=== PATIENT | female | born 1965 | race Caucasian/White ===

== ENCOUNTER 2018-02-19 11:00 | Inpatient (IN) | payer BC ==
[2018-02-19] MEDS ORDERED: HYDROmorphone INJ1* 1 MG/ML SYRINGE IV SLOW PU PRN (15:48)
[2018-02-19] MEDS ORDERED: Dextrose 50% Syringe 50 ML* 25 GM/50 ML SYRINGE IV PUSH PRN (16:18)
[2018-02-19] MEDS: Insulin LISPRO* 1 UNITS UNIT SUBCUT SCH (16:33)
[2018-02-19] MEDS: Ciprofloxacin 400MG IVPREMIX(* 400 MG/200 ML BAG IVPB SCH (20:23)
[2018-02-19] MEDS: NS 0.9% 1000 ML* 1,000 ML IV SCH (20:23)
[2018-02-19] MEDS: Morphine TAB Extended Release (*) 30 MG TAB.ER PO SCH (20:23)
--- NOTE | 2018-02-19 22:17 | CONS ---
GASTROENTEROLOGY CONSULT: DATE: 02/19/18 CONSULTING PHYSICIAN: Kaylie Rodriguez REASON FOR CONSULTATION: 5 days of abdominal pain with bloody diarrhea on day [address] scan showing thickening of the sigmoid colon. HISTORY: This 52-year-old morbidly obese woman diabetic for 10 years, on insulin for 6, status post cholecystectomy in 1999, chronic pain, on narcotics with constipation and with a history of ischemic colitis in June 2015, developed abdominal pain about 5 days ago. She states that [facility], and she suddenly developed nausea, vomiting, and diarrhea that was clearish she states. She took a couple of orally dissolving anti-nauseants (presumably Zofran) and went home. The next day, she just felt weak and ate lightly and had more fairly loose passages. She did not see any blood then. On 02/16/18, she was at a [employer] [place] and had more urgency and passed blood and this occurred a few times. She took no action other than to tell her . She vomited once that day. There was no fever. On 02/17/18, she spoke with Dr. Rodriguez about her blood sugar control. She reported passing mucus and she was having abdominal pain with walking and when her dog jumped on her lap. She took 3 Imodium yesterday and has not had a stool in 24 hours Today, she was seen at her primary office and was tender and had a CT scan showing thickening of the bowel with some questionable stranding in the ascending colon and in the rectosigmoid area. Two and half years ago, she had similar pain and was seen by Dr Browning and sigmoidoscopy showed ischemic colitis and a biopsy was also consistent with it. Dr. Browning saw normal mucosa above the sigmoid. No recent antibiotics from her primary She has never had a colonoscopy for any other reason. Her usual bowel pattern is constipated where she may skip 2 to 5d or even more than a week, which she attributes to pain medicines. Five or six times a year, she will have an episode where she becomes very flushed with chills, has cramps and then a precipitous voluminous stool. She cannot figure any particular pattern to this except that it is fairly infrequent, the last one was about a month ago. Some workup reportedly was done a few years ago. PAST MEDICAL HISTORY: 1. Morbid obesity. 2. Chronic pain - followed in pain clinic. 3. Status post cholecystectomy in 1999. 4. Diabetes - oral agents about 10 years ago and insulin 6 years ago. She is now prone to low blood sugar attacks. 5. Hypothyroidism. 6. Fatty liver. 7. Ischemic colitis episode in June 2015 with negative thrombophilic workup after that. 8. Four C-sections. 9. Hysterectomy. 10. Lysis of adhesions intraoperatively by Dr. Srinivasan doing an intraoperative consult. 11. Thrombocytopenia - a slow diminution in platelets over the last several years with the last clearly normal platelet count 215 on 04/15/11 and then gradually evolving lower into the 60 to 90 range. MEDICATIONS: As an outpatient: 1. Metformin. 2. Sitagliptin. 3. Insulin. 4. Ferrous sulfate. 5. Atorvastatin. 6. Levothyroxine. 7. Lyrica. 8. Hydrocodone. 9. Senna. SOCIAL HISTORY: She is and does arts and crafts, which she presents at [employer]. She has 4 children, the youngest being 27[address] Rodriguez has been her doctor for 30 years. REVIEW OF SYSTEMS: No history of seizures, TIA, CVA, syncope, palpitations, [place] , heart failure, hepatitis, jaundice, hematuria, or renal stones. She did have an episode of vaginitis treated with an unknown med. PHYSICAL EXAMINATION: She is morbidly obese woman in bed, appearing generally comfortable. She has a quizzical smile and asking if she can go home. She is afebrile. HEENT exam shows no icterus. She has no adenopathy with marked obesity limiting the exam. Lungs are clear and heart sounds are regular. The abdomen is obese with minimal lap eze scars. Bowel sounds are diminished. She is tender mostly in the midline infraumbilical area and left lower quadrant. Perianal inspection is normal. Rectal reveals some yellowish brown fecal mucous. Extremities show no edema and pulses are intact. DIAGNOSTIC STUDIES/LAB DATA: CBC shows white count 7.3, hemoglobin 14.4, MCV 88 , platelets 94, CRP 46.37, bilirubin 0.6, ALT 54, albumin 3.9. Most recent iron panel was iron 55, PRBC 46, saturation 14%, ferritin 15.3, 06/23/16. Followup ferritin 33.9 one year later, 07/04/17. Radiology review - CT scan shows good IV contrast flow through the SMA on sagittal image 48/95 and the HEYDI and celiac access image 49 to 95. IMPRESSION: This 52-year-old woman with many vascular risk factors has had a 5- day illness with some diarrhea and additional features of vomiting at the onset , some bloody passage on the 3rd day and yet no or white count elevation. She does not look systemically ill at this time. Since she has had an episode of documented ischemic colitis, possibly this represents a somewhat atypical presentation; it is probably high on the list of candidates. Other causes of diarrhea are possible as the bleeding description is not classic for ischemia. An unprepped sigmoidoscopy is probably indicated with collection of stool for culture. Today she has not produced a specimen. A full course of antibiotics may not be indicated given her afebrile status and normal white count. Her morbid obesity, might warrant an aggressive independent approach. [id number]/[facility]PS #: [id number] MTDD
[2018-02-19] MEDS ORDERED: Al Hydrox/Mg Hydrox/Simet LIQ* 30 ML UDC PO PRN (23:44)
[2018-02-19] MEDS: metroNIDAZOLE IV 500 MG/100ML* 500 MG/100 ML BAG IVPB SCH (23:57)
--- NOTE | 2018-02-20 02:46 | HP ---
HISTORY AND PHYSICAL: DATE OF ADMISSION: 02/19/18 HISTORY OF PRESENT ILLNESS: Cristy Hong is a 52-year-old woman admitted with probable ischemic colitis. The patient has not felt well over the last several days. She presented to our office today with a 5-day history of clear mucosy stool at first. This persisted for 2 to 3 days and then she began to have bloody streaks in the mucous. She then developed pain in the left lower side of her abdomen accompanied by loss of appetite, nausea, vomiting. She has had no fever. She has had 3 to 4 loose bowel movements daily since her symptoms began. She took two Imodium tabs yesterday and has not had a bowel movement today. The patient had ischemic colitis in 2016. Because of these symptoms, she was sent for labs and a CT scan, which did show colitis and she is being admitted at this time. PAST MEDICAL HISTORY: Significant for the following medical problems. 1. Type 2 diabetes mellitus, recently not well controlled because the patient admitted to not be taking her insulin regularly. 2. History of thrombocytopenia. 3. Hypothyroidism. 4. Chronic low back pain. 5. Hyperlipidemia. 6. Morbid obesity, the patient being evaluated for bariatric surgery. 7. History of fatty liver. 8. Hypothyroidism. 9. Social phobia. 10. Depression. 11. Sleep apnea. PAST SURGICAL HISTORY: Includes lumbar laminectomy, hysterectomy, bilateral oophorectomy, cholecystectomy, bilateral reduction mammoplasties. MEDICATIONS: Current medications are: 1. Levothyroxine 112 mcg daily. 2. Sertraline 50 mg daily. 3. Clobetasol 0.05% as needed. 4. Januvia 100 mg daily. 5. Atorvastatin 10 mg daily. 6. Metformin 1000 mg twice daily. 7. Ferrous sulfate 325 mg every other day. 8. Ondansetron 4 mg 1 every 8 hours p.r.n. nausea. 9. Senna plus 8.6 mg/50 twice a day as needed for constipation. 10. Imodium as needed for diarrhea. 11. Humalog 15 units a.c. 12. Lantus SoloSTAR 75 units daily. 13. Embeda 60 mg/2.4 mg daily. 14. Daly seltzer p.r.n. 15. Aspirin 81 mg daily. 16. Hydrocodone 10/325 one half tablet twice a day as needed. 17. Lyrica 100 mg 3 times a day. ALLERGIES: She is allergic to SULFA, TYLENOL, TYLENOL with CODEINE, SIMVASTATIN , DEMEROL, EFFEXOR, GLIPIZIDE. FAMILY HISTORY: Positive for heart disease, diabetes mellitus, obesity. SOCIAL AND PERSONAL HISTORY: The patient is . She is not employed. She does do crafts, participates in craft shows. She has 4 adult children. Her son has been recently undergoing treatment for Hodgkin's lymphoma. She lives in a rented home. REVIEW OF SYSTEMS: Otherwise unremarkable. PHYSICAL EXAMINATION GENERAL: She is a well-developed, obese, white female, in no acute distress. VITAL SIGNS: Blood pressure 110/72, pulse 76, respirations 20, temperature 98. Weight is down 3 pounds in the past week. HEENT: Atraumatic, normocephalic. Full EOMs. Mouth: Pharynx benign. NECK: Supple. CHEST: Clear. HEART: Normal S1, S2 without murmurs, gallops, or rubs. ABDOMEN: Soft with marked bilateral lower quadrant tenderness, left worse than right. No rebound or guarding. Normal bowel sounds. EXTREMITIES: Without edema. NEUROLOGIC: Without gross focal or lateralizing signs. SKIN: Warm and dry. LABORATORY DATA: CBC: WBC 7.3, H and H 14.4/43, MCV 88, PLT 94,000. Chemistries: Sodium 137, potassium 4.1, chloride 101, CO2 28, BUN and creatinine 10/0.77, glucose 173. Alk phos 205, ALT 54, CRP 46.37. Chem profile otherwise within normal limits. CT scan of the abdomen shows colitis. IMPRESSION: The patient with probable ischemic colitis. The plan is to admit her and place her on IV antibiotics. GI consultation has been requested. I have spoken to Dr. Elena. She will be receiving IV fluids. Her diet is clear liquids. DVT prophylaxis with SCDs will be ordered. I will not be giving her heparin because of GI bleeding. She is a full code. [id number]/CPS #: [id number] MTDD
[2018-02-20] MEDS: Ondansetron INJ* 2 MG/ML VIAL IV PRN ×2 (03:27→10:32)
[2018-02-20] MEDS: Levothyroxine TAB* 112 MCG TAB PO SCH (05:24)
[2018-02-20] MEDS: metroNIDAZOLE IV 500 MG/100ML* 500 MG/100 ML BAG IVPB SCH ×3 (05:24→20:47)
[2018-02-20] MEDS: Insulin LISPRO* 1 UNITS UNIT SUBCUT SCH ×3 (07:43→19:09)
[2018-02-20 08:18] LABS: Hematocrit 40 % (35-47); Hemoglobin 13.6 g/dl (12.0-16.0); Mean Corpuscular HGB Conc 34 g/dl (31-36); Mean Corpuscular Hemoglobin 29 pg (27-31); Mean Corpuscular Volume 87 fL (80-97); Red Blood Count 4.67 10^6/ul (4.00-5.40); Red Cell Distribution Width 15 % (10.5-15); White Blood Count 6.8 10^3/ul (3.5-10.8)
[2018-02-20 08:41] LABS: EGFR Non-African American 88.6 (>60)
[2018-02-20] MEDS: Morphine TAB Extended Release (*) 30 MG TAB.ER PO SCH ×2 (08:55→22:04)
[2018-02-20] MEDS: Insulin GLARGINE(*) 1 UNITS UNIT SUBCUT SCH (08:55)
[2018-02-20] MEDS: Ciprofloxacin 400MG IVPREMIX(* 400 MG/200 ML BAG IVPB SCH ×2 (08:55→19:19)
[2018-02-20 09:08] LABS: ABS Basophils 0 10^3/ul (0-0.2); ABS Eosinophils 0.2 10^3/ul (0-0.6); ABS Lymphocytes 1.5 10^3/ul (1.0-4.8); ABS Monocytes 0.4 10^3/ul (0-0.8); ABS Neutrophils 4.7 10^3/ul (1.5-7.7); ABS Nucleated RBC 0 10^3/ul; Eosinophil % 2.3 % (0-6); Lymphocyte % 21.9 % (25-47); Mean Platelet Volume 11.3 fL (7.4-10.4); Nucleated Red Blood Cells % 0.1; Platelet Count 96 10^3/ul (150-450)
[2018-02-20] MEDS: NS 0.9% 1000 ML* 1,000 ML IV SCH (10:34)
[2018-02-20] MEDS ORDERED: fentaNYL* 50 MCG/ML 2 ML VIAL (100 MCG VIAL) ONE (15:41)
[2018-02-20] MEDS ORDERED: Midazolam* 1 MG/ML 10 ML VIAL (10 MG) ONE (15:41)
[2018-02-20] MEDS ORDERED: Ondansetron INJ* 2 MG/ML VIAL ONE (17:14)
--- NOTE | 2018-02-20 19:26 | PRO ---
AMENDED REPORT NOW INCLUDES DATE OF PROCEDURE - ESIGNED BEFORE ADJUSTMENT * CC: Kaylie Rodriguez MD * PROCEDURE REPORT: DATE OF PROCEDURE: 02/20/18 - ROOM #403 ATTENDING PHYSICIAN: Kaylie Rodriguez MD PROCEDURE: Flex sig with biopsy. INDICATION: History of ischemic colitis in the sigmoid on colonoscopy and confirmed on biopsy in 2016, now with recurrent nausea, vomiting, diarrhea with some rectal bleeding. Colon thickening in the ascending colon and the rectosigmoid. Concern for recurrent ischemic colitis. MEDICATIONS GIVEN: 1. Midazolam 2 mg. 2. Fentanyl 25 mg. 3. Zofran 4 mg IV. PROCEDURE IN DETAIL: Full disclosure of risks were reviewed with the patient as detailed on the consent form. The patient was placed in the left lateral decubitus position and monitored with continuous pulse oximetry, capnography, interval blood pressure monitoring, and direct observation. After anorectal exam was performed, the pediatric colonoscope was inserted into the rectum and advanced 15 cm. The patient tolerated the procedure well and was recovered in the GI recovery area. FINDINGS: Anorectal exam was unremarkable. Scope was inserted into the rectum. Immediately upon entering into the rectum, there was quite abnormal mucosa noted. Mucosa was diffusely friable and erythematous. There was what appeared to be exudate scattered across the mucosa. The exudate did not wash off with water flush, although I was able to move or scrape off some of this exudate with biopsy forceps to reveal friable mucosa underneath. Biopsies obtained. I did not advance the colonoscope past down to 15 cm as the inflammation was quite significant. Scope was withdrawn from the patient. A trap was used to collect some of the fluid suctioned from the rectum. There was not a large amount of liquid stool in the rectum, so this fluid sample may be dilute with liquid used to wash the mucosa during the case. Fluid to be sent for C. Diff and stool culture. IMPRESSION: Colitis involving entire distal rectum up to at least 15 cm. Scope not advanced past this point. Appearance suggestive of pseudomembranous colitis (C diff). Differential also includes other causes of infectious colitis and, less likely, inflammatory colitis. Appearance is not consistent with ischemic colitis in appearance or location. RECOMMENDATIONS: - Await C diff and stool cultures from fluid sent during case. I would also recommend obtaining a stool culture and C. Diff from next bowel movement on the floor as our sample from the endo unit may be dilute. - Low threshold to switch to oral vancomycin to empirically treat for C. Diff if test results will be delayed longer than several hours given high suspicion based on endoscopic findings. - Await biopsies. - Continue supportive care. Discussed the case with the patient and Dr. Rodriguez. Thank you very much for this consult. [id number]/[facility] #: [id number] MARIA
[2018-02-20] MEDS ORDERED: NS 0.9% 1000 ML* 1,000 ML IV SCH (19:45)
[2018-02-20] MEDS ORDERED: Metoclopramide IV* 5 MG/ML 2 ML VIAL IV PRN (20:30)
[2018-02-20] MEDS ORDERED: Metoclopramide IV* 5 MG/ML 2 ML VIAL ONE (20:37)
[2018-02-20] MEDS: Vancomycin CAP* 125 MG CAP PO SCH (23:02)
[2018-02-21] MEDS: metroNIDAZOLE IV 500 MG/100ML* 500 MG/100 ML BAG IVPB SCH ×3 (05:41→20:54)
[2018-02-21] MEDS: Levothyroxine TAB* 112 MCG TAB PO SCH (05:41)
[2018-02-21 06:12] LABS: ABS Basophils 0 10^3/ul (0-0.2); ABS Eosinophils 0.1 10^3/ul (0-0.6); ABS Lymphocytes 1.1 10^3/ul (1.0-4.8); ABS Monocytes 0.3 10^3/ul (0-0.8); ABS Neutrophils 3.1 10^3/ul (1.5-7.7); ABS Nucleated RBC 0 10^3/ul; Eosinophil % 2.7 % (0-6); Hematocrit 38 % (35-47); Hemoglobin 12.7 g/dl (12.0-16.0); Lymphocyte % 22.6 % (25-47); Mean Corpuscular HGB Conc 33 g/dl (31-36); Mean Corpuscular Hemoglobin 29 pg (27-31); Mean Corpuscular Volume 88 fL (80-97); Mean Platelet Volume 11.3 fL (7.4-10.4); Nucleated Red Blood Cells % 0.1; Platelet Count 86 10^3/ul (150-450); Red Blood Count 4.36 10^6/ul (4.00-5.40); Red Cell Distribution Width 15 % (10.5-15); White Blood Count 4.7 10^3/ul (3.5-10.8)
[2018-02-21 06:22] LABS: EGFR Non-African American 80.6 (>60)
[2018-02-21] MEDS: Insulin LISPRO* 1 UNITS UNIT SUBCUT SCH ×3 (08:14→16:24)
[2018-02-21] MEDS: Morphine TAB Extended Release (*) 30 MG TAB.ER PO SCH ×2 (08:15→20:54)
[2018-02-21] MEDS: Vancomycin CAP* 125 MG CAP PO SCH ×4 (08:16→20:55)
[2018-02-21] MEDS: Insulin GLARGINE(*) 1 UNITS UNIT SUBCUT SCH (08:16)
[2018-02-22] MEDS: Levothyroxine TAB* 112 MCG TAB PO SCH (05:37)
[2018-02-22] MEDS: metroNIDAZOLE IV 500 MG/100ML* 500 MG/100 ML BAG IVPB SCH (05:37)
[2018-02-22] MEDS: Morphine TAB Extended Release (*) 30 MG TAB.ER PO SCH (07:30)
[2018-02-22] MEDS: Vancomycin CAP* 125 MG CAP PO SCH (07:31)
[2018-02-22] MEDS: Insulin LISPRO* 1 UNITS UNIT SUBCUT SCH (07:31)
[2018-02-22] MEDS: Insulin GLARGINE(*) 1 UNITS UNIT SUBCUT SCH (07:31)
[2018-02-22 08:26] VITALS: BP 124/61
--- NOTE | 2018-02-22 21:42 | DS ---
DISCHARGE SUMMARY: DATE OF ADMISSION: 02/19/18 DATE OF DISCHARGE: 02/22/18 DISCHARGE DIAGNOSES: 1. Clostridium difficile colitis. 2. Type 2 diabetes mellitus. 3. Hypothyroidism. 4. Obesity. 5. History of ischemic colitis. 6. Sociophobia. 7. Anxiety. 8. History of bacterial vaginitis. 9. Chronic low back pain. 10. Chronic thrombocytopenia. 11. Elevated LFTs. HISTORY: Cristy Hong is a 52-year-old woman admitted with abdominal pain and diarrhea. Please see the dictated admission note for details of the present illness, past medical history, family history, social and personal history, review of systems, physical examination. LABORATORY DATA: On the day of admission, CBC: WBC 7.3, H and H 14.4/43, MCV 88, PLT 94,000. CBC on 02/20/18, WBC 6.8, H and H 13.6/40, MCV 96, PLT 96,000. CBC on 02/21/18: WBC 4.7, H and H 12.7/38, MCV 88, PLT 86,000. Chemistries on day of admission: Sodium 137, potassium 4.1, chloride 101, CO2 of 28, BUN and creatinine 10/0.77, glucose 173. Rest of the comprehensive metabolic panel was within normal limits except for ALT 54, alk phos 205, CRP 46.37. Repeat labs on 02/20/18 essentially unchanged except for bilirubin 1.10, GGT 221, AST 44, alk phos 220. CRP down to 22.72. Microbiology: Stool for culture is pending. Stool for C. diff toxigenic was positive. IMAGING: Abdominal pelvis CT on 02/19/18 showed colitis involving the ascending colon and rectosigmoid colon. There is questionable identification of appendix. Procedure report, 02/20/18: Flexible sigmoidoscopy with biopsy showed abnormal mucosa, friable and erythematous with scattered exudate across the mucosa. Biopsy of the mucosa with surface hyperplastic change, focal crypt architectural distortion and focal ischemic colitis changes. CONSULTATION: On 02/19/18, GI, Dr. Elena felt that the patient had vascular risk factors, 5-day illness with diarrhea, vomiting, bloody passage on the 3rd day. He felt that this could be an atypical presentation of ischemic colitis versus diarrhea of another cause. He recommended sigmoidoscopy, not clear whether antibiotics indicated. HOSPITAL COURSE: The patient was initially admitted, felt to have probable ischemic colitis. She was placed on IV antibiotics, GI consultation was obtained (see above). IV fluids were given. Her diet was initially clear liquids, advanced as tolerated. She was full code. Heparin was not given because of her rectal bleeding. She improved over the course of her hospitalization. Her diarrhea resolved. She had no diarrhea after the morning of 02/21/18. Her abdominal pain resolved. She was eating normally by the time of discharge. Her blood sugars were quite low during the time of her hospitalization despite the fact that her insulin was cut back. She was cut back from her usual 75 units of Lantus to 40 units. Of note, initially her antibiotics were Cipro and metronidazole, but when the C. diff came back positive, Cipro was stopped. She was continued on metronidazole until discharge. At the time of discharge, her diet is regular. Her activity is as tolerated. MEDICATIONS: 1. Vancomycin 125 mg 4 times a day for 34 more tablets. 2. Januvia 100 mg daily. 3. Sertraline 50 mg daily. 4. Senna 1 tab twice a day as needed for constipation. 5. Lyrica 100 mg 3 times a day. 6. Embeda ER 60/2.4 mg daily. 7. Metformin 1000 mg twice a day. 8. Levothyroxine 112 mcg daily. 9. Humalog 15 units before meals if blood sugar greater than 150. 10. Hydrocodone/acetaminophen 10/325 mg half tablet twice a day as needed. 11. Aspirin 81 mg daily. 12. Lantus 40 units daily. 13. Insulin 15 units subcutaneous before meals if blood sugar over 150. 14. Iron sulfate 325 mg every other day. 15. Metformin 1000 mg twice a day. 16. Atorvastatin 10 mg daily. ACTIVITY: As normal. DIET: Regular. FOLLOWUP: She is to follow up with me in 4 to 7 days, at which time she should have a CBC and CMP. [id number]/[facility] #: [id number] [facility] CENTERShante
== END 2018-02-22 10:35 | disposition home or self-care (01) | DRG 248 ==
LOC: MED 11:00 → OBSVTOIN 02-21 11:00
PROVIDERS: ADMIT Internal Medicine Geriatric Medicine; ATTEND Internal Medicine Geriatric Medicine
PROC: 0DBP8ZX Excision of Rectum, Via Natural or Artificial Opening Endoscopic, Diagnostic (ICD-10-PCS; principal; 2018-02-20)
PROC: 0DBN8ZX Excision of Sigmoid Colon, Via Natural or Artificial Opening Endoscopic, Diagnostic (ICD-10-PCS; 2018-02-20)
PROC: 0D9P8ZX Drainage of Rectum, Via Natural or Artificial Opening Endoscopic, Diagnostic (ICD-10-PCS; 2018-02-20)
DX: A04.72 Enterocolitis due to Clostridium difficile, not specified as recurrent (principal); K62.5 Hemorrhage of anus and rectum; E11.9 Type 2 diabetes mellitus without complications; E03.9 Hypothyroidism, unspecified; G89.29 Other chronic pain; M54.5 Low back pain; E78.5 Hyperlipidemia, unspecified; E66.01 Morbid (severe) obesity due to excess calories; K76.0 Fatty (change of) liver, not elsewhere classified; F40.10 Social phobia, unspecified; D69.6 Thrombocytopenia, unspecified; R79.89 Other specified abnormal findings of blood chemistry; F32.9 Major depressive disorder, single episode, unspecified; G47.30 Sleep apnea, unspecified; Z90.710 Acquired absence of both cervix and uterus; Z90.722 Acquired absence of ovaries, bilateral; Z90.49 Acquired absence of other specified parts of digestive tract; Z88.2 Allergy status to sulfonamides; Z88.6 Allergy status to analgesic agent; Z88.8 Allergy status to other drugs, medicaments and biological substances; Z68.36 Body mass index [BMI] 36.0-36.9, adult; Z82.49 Family history of ischemic heart disease and other diseases of the circulatory system; Z83.3 Family history of diabetes mellitus; Z83.49 Family history of other endocrine, nutritional and metabolic diseases; Z80.7 Family history of other malignant neoplasms of lymphoid, hematopoietic and related tissues; Z79.4 Long term (current) use of insulin; Z79.82 Long term (current) use of aspirin
CPT/HCPCS: 36415; 80053; 82977; 85025; 86140; 87045; 87046; 87493; 87899; 88305; 99156; A9270-GY; G0378; J0744; J1170; J2250; J2405; J2765; J3010; J3490

== ENCOUNTER 2018-04-28 15:16 | Inpatient (IN) | payer BC ==
--- NOTE | 2018-04-28 15:40 | ED ---
GI/ HPI - HPI Summary HPI Summary: A 53 y/o F presents to ED with c/o intermittent episodes of melena onset five days ago. Pt was constipated six days ago and took Senokot. The next day, and since then, she has had intermittent episodes of diarrhea with blood. Associated sx: lower abd pain, n/v. The abd pain is 8 out of 10 and non- radiating. She denies CP, SOB, palpitations. She had dx: c.diff in February and was given IV ABX, she believes she is clear now. Otherwise, she has no recent history of ABX. - History of Current Complaint Chief Complaint: EDGIBleed Time Seen by Provider: 04/28/18 15:36 Stated Complaint: BLOOD IN STOOL Hx Obtained From: Patient Onset/Duration: Started Days Ago, Atraumatic, Still Present Timing: Intermittent Severity: Moderate Current Severity: Moderate Pain Intensity: 8 - 10 Location of Pain: RLQ, LLQ Associated Signs and Symptoms: Positive: Nausea, Vomiting, Blood w/Stool, Diarrhea, Abdominal Pain. Negative: Chest Pain, Other: - neg: SOB, palpitations - Additional Pertinent History Primary Care Physician: [id number] - Allergy/Home Medications Allergies/Adverse Reactions: Allergies Allergy/AdvReac Type Severity Reaction Status Date / Time Sulfa (Sulfonamide Allergy rash and Verified 04/28/18 17:49 Antibiotics) blisters acetaminophen AdvReac Mild Nausea Verified 04/28/18 20:22 [From Tylenol-Codeine #3] codeine AdvReac Mild Nausea Verified 04/28/18 20:22 [From Tylenol-Codeine #3] Home Medications: Home Medications Levothyroxine TAB* [Synthroid TAB*] 125 mcg PO EVERY OTHER DAY 04/28/18 [ History Confirmed 04/28/18] PMH/Surg Hx/FS Hx/Imm Hx Previously Healthy: No Endocrine/Hematology History: Reports: Hx Diabetes, Hx Thyroid Disease Cardiovascular History: Reports: Hx Hypercholesterolemia, Hx Hypertension Denies: Hx Congestive Heart Failure, Hx Pacemaker/ICD GI History: Reports: Other GI Disorders - constipation and hospital for GI issues, History: Denies: Hx Dialysis, Hx Renal Disease Musculoskeletal History: Reports: Hx Arthritis, Hx Back Problems, Other Musculoskeletal History - Chronic Bilateral Leg Pain Sensory History: Reports: Hx Contacts or Glasses Denies: Hx Hearing Aid Opthamlomology History: Reports: Hx Contacts or Glasses Psychiatric History: Denies: Hx Panic Disorder - Cancer History Hx Chemotherapy: No Hx Radiation Therapy: No - Surgical History Surgery Procedure, Year, and Place: X4, Cholecystectomy, LEFT Rotator Cuff Repair, Breast Reduction, Hysterectomy, LSP surgery for slipped discs 11/27 , Ovarian cysts Infectious Disease History: Yes Infectious Disease History: Denies: Traveled Outside the [place] in Last 30 Days - Family History Known Family History: Positive: Diabetes Negative: Cardiac Disease - Social History Occupation: Unemployed Lives: With Family Alcohol Use: None Hx Substance Use: No Substance Use Type: Reports: None Substance Use Comment - Amount & Last Used: ms contin and Hydrocodone Hx Tobacco Use: No Smoking Status (MU): Never Smoked Tobacco Have You Smoked in the Last Year: No Review of Systems Negative: Palpitations, Chest Pain Negative: Shortness Of Breath Positive: Abdominal Pain, Vomiting, Diarrhea, Nausea, Other - pos: melena All Other Systems Reviewed And Are Negative: Yes Physical Exam - Summary Physical Exam Summary: VITAL SIGNS: Reviewed. GENERAL: Patient is a well-developed and obese female who is lying comfortable in the stretcher. Patient is not in any acute respiratory distress. HEAD AND FACE: Normocephalic and atraumatic. EYES: PERRLA, EOMI x 2, No injected conjunctiva. EARS: Hearing grossly intact. Ear canals and tympanic membranes are WNL. MOUTH: Oropharynx within normal limits. NECK: Supple, trachea is midline, no adenopathy, no JVD. CHEST: Symmetric, no tenderness at palpation LUNGS: Clear to auscultation bilaterally. No wheezing or crackles. CVS: RRR, S1 and S2 present, no murmurs or gallops appreciated. ABDOMEN: Soft, LLQ tenderness. No signs of distention. Positive bowel sounds. No rebound, no guarding, and no masses palpated. No abdominal bruit or pulsations. EXTREMITIES: FROM in all major joints, no edema, no cyanosis or clubbing. NEURO: Alert and oriented x 3. No acute neurological deficits. Speech is normal. SKIN: Dry and warm Pt had a BM in the ED and declined a rectal exam. Triage Information Reviewed: Yes Vital Signs On Initial Exam: Initial Vitals Temp Pulse Resp BP Pulse Ox 96.6 F 77 16 130/80 93 01/13/19 15:23 04/28/18 15:23 04/28/18 15:23 04/28/18 15:23 04/28/18 15:23 Vital Signs Reviewed: Yes Diagnostics - Vital Signs Vital Signs Temp Pulse Resp BP Pulse Ox 04/28/18 15:23 96.6 F 77 16 130/80 93 - Laboratory Result Diagrams: 04/29/18 06:46 04/29/18 06:46 Lab Statement: Any lab studies that have been ordered have been reviewed, and results considered in the medical decision making process. - CT A/P CT Summary of CT Findings: Pending, see Applifier for official report. GIGU Course/Dx - Course Assessment/Plan: A 53 y/o F presents to ED with c/o intermittent episodes of melena onset five days ago. Pt was constipated six days ago and took Senokot. The next day, and since then, she has had intermittent episodes of diarrhea with blood. Associated sx: lower abd pain, n/v. The abd pain is 8 out of 10 and non-radiating. She denies CP, SOB, palpitations. She had dx: c.diff in February and was given IV ABX, she believes she is clear now. Otherwise, she has no recent history of ABX. Blood work without any significant abnormality except for sodium 134, chloride 97, glucose 344, magnesium is 1.8, alkaline phosphatase is 155 and CRP is 62.46. Patient is positive for C. Diff for which the patient was given vancomycin. Now the patient reports that she is nauseous therefore the patient was given Zofran and more IV fluids. Occult blood is negative. The patient is to have nausea therefore I believe that the patient would benefit of admission. I discussed the case with Dr. Fong from the hospital services was accepted the patient for admission. - Diagnoses Provider Diagnoses: C. difficile diarrhea, Abdominal pain, Nausea and vomiting - Physician Notifications Discussed Care Of Patient With: Lucas Fong - hospitalist Time Discussed With Above Provider: 18:43 Instructed by Provider To: Admit As Inpatient Discharge - Sign-Out/Discharge Documenting (check all that apply): Patient Departure - ADMIT - Discharge Plan Condition: Stable Disposition: ADMITTED TO [facility] - Billing Disposition and Condition Condition: STABLE Disposition: Admitted to [facility] - Attestation Statements Document Initiated by Scribe: Yes Documenting Scribe: Nagi Reich Provider For Whom Jalen is Documenting (Include Credential): Dr. Jimmy Gonsales MD Scribe Attestation: I, Nagi Reich, scribed for Dr. Jimmy Gonsales MD on 04/29/18 at 1726. Scribe Documentation Reviewed: Yes Provider Attestation: The documentation as recorded by the jalen, Nagi Reich accurately reflects the service I personally performed and the decisions made by me, Dr. Jimmy Gonsales MD Status of Scribnabil Document: Viewed
[2018-04-28] MEDS ORDERED: NS 0.9% 1000 ML* 1,000 ML IV ONE (15:45)
[2018-04-28 16:43] LABS: ABS Basophils 0 10^3/ul (0-0.2); ABS Eosinophils 0.1 10^3/ul (0-0.6); ABS Monocytes 0.3 10^3/ul (0-0.8); ABS Neutrophils 5.5 10^3/ul (1.5-7.7); ABS Nucleated RBC 0 10^3/ul; Eosinophil % 1.3 %; Hematocrit 43 % (35-47); Hemoglobin 14.4 g/dl (12.0-16.0); Lymphocyte % 14.1 %; Mean Corpuscular HGB Conc 33 g/dl (31-36); Mean Corpuscular Hemoglobin 30 pg (27-31); Mean Corpuscular Volume 89 fL (80-97); Mean Platelet Volume 10.8 fL (7.4-10.4); Nucleated Red Blood Cells % 0.1; Platelet Count 104 10^3/ul (150-450); Red Blood Count 4.84 10^6/ul (4.00-5.40); Red Cell Distribution Width 15 % (10.5-15); White Blood Count 6.8 10^3/ul (3.5-10.8)
[2018-04-28 17:02] LABS: Albumin 4.2 g/dL (3.2-5.2); BUN/Creatinine Ratio 14.3 (8-20); C Reactive Protein 62.46 mg/L (<8.01); Calcium 9.7 mg/dL (8.6-10.3); EGFR Non-African American 65.2 (>60); Globulin 4.1 g/dL (2-4); Magnesium 1.8 mg/dL (1.9-2.7); Potassium 4.2 mmol/L (3.5-5.0); Total Protein 8.3 g/dL (6.4-8.9)
[2018-04-28 17:47] LABS: Urine Appearance Cloudy; Urine Bilirubin Negative (Negative); Urine Blood Negative (Negative); Urine Color Yellow; Urine Glucose 3+(>=500 mg/dL) (Negative); Urine Ketones Negative (Negative); Urine Nitrite Negative (Negative); Urine Protein Negative (Negative); Urine Specific Gravity 1.013 (1.010-1.030); Urine Urobilinogen Negative (Negative)
[2018-04-28] MEDS ORDERED: Insulin REGULAR(*) 1 UNITS UNIT SUBCUT ONE (17:47)
[2018-04-28] MEDS ORDERED: Iodixanol* (CONTRAST) 320 MG/ML 100 ML SDV IV ONE (17:48)
[2018-04-28] MEDS ORDERED: Magnesium Oxide TAB* 400 MG PO ONE (17:52)
[2018-04-28] MEDS ORDERED: Ondansetron INJ* 2 MG/ML VIAL IV ONE (18:31)
[2018-04-28] MEDS ORDERED: Vancomycin CAP* 125 MG CAP PO ONE (18:38)
[2018-04-28] MEDS ORDERED: Morphine VIAL* 4 MG/ML VIAL (1 ml vial) IV ONE (18:41)
[2018-04-28] MEDS ORDERED: Vancomycin CAP* 250 MG CAP PO ONE (19:00)
[2018-04-28] MEDS ORDERED: Hydrocodone/Acetamin 10/325 1 TAB PO PRN (20:07)
[2018-04-28] MEDS ORDERED: NALTREXONE PO SCH (21:00)
[2018-04-28] MEDS ORDERED: MORPHINE SULFATE PO SCH (21:00)
[2018-04-28] MEDS: Morphine TAB Extended Release (*) 30 MG TAB.ER PO SCH (21:39)
[2018-04-28] MEDS: Vancomycin CAP* 125 MG CAP PO SCH (21:39)
[2018-04-28] MEDS: Pregabalin CAP(*) 100 MG PO SCH (21:39)
--- NOTE | 2018-04-28 21:43 | HP ---
HISTORY AND PHYSICAL: DATE OF ADMISSION: 04/28/17 TIME OF ADMISSION: PRIMARY CARE PHYSICIAN: Dr. Rodriguez. CHIEF COMPLAINT: Abdominal pain. HISTORY OF PRESENT ILLNESS: This is a 53-year-old female with a history of ischemic colitis and history of C. diff colitis who presents to the emergency department today with 2 weeks of diarrhea and occasional nausea and vomiting. She reports that the symptoms first started on with some mucosy diarrhea, which improved by the following day. Then, on , she had some nausea and vomiting and then the following week, she was constipated, so this past Sunday she took senna, then on Sunday she had diarrhea mixed with blood and over the past 6 days, the diarrhea and abdominal pain have worsened. She describes the pain as worse in the left lower quadrant. It gets worse with food and is relieved by not eating. She reports having diarrhea approximately 8 to 10 times per day. She described them as mostly clear and mucosy with occasionally blood mixed in. She has had a poor appetite and has lost about 11 pounds in the past week. She denied any fevers. She has not traveled recently or eaten anything unusual and she has no sick contacts. She also reports some nausea and vomiting over the past few days. She came to the emergency department today because the pain was worsening. PAST MEDICAL HISTORY: 1. History of ischemic colitis, twice in the past few years. 2. History of C. diff colitis, the first time was in February 2018. 3. Type 2 diabetes. 4. Hypothyroidism. 5. Obesity. 6. Anxiety. 7. Chronic pain syndrome. 8. Chronic thrombocytopenia. ALLERGIES: SULFA and CODEINE. SOCIAL HISTORY: She lives at home with her . Her is her emergency contact. Her 's name is Ney and his phone number is [phone]. She has never smoked. She does not drink or use any other drugs. REVIEW OF SYSTEMS: As per the HPI. Remainder of the 14-point review of systems is negative. PHYSICAL EXAMINATION GENERAL: Alert, well-appearing female, in no distress. She is nontoxic appearing. VITAL SIGNS: Temperature 96.6, heart rate 71, respiratory rate 16, pulse ox 95 % on room air, blood pressure 96/52. HEENT: Pupils are 3 mm bilaterally and reactive to light. Oral mucosa is moist with no pharyngeal exudates. She has poor dentition and gingival hyperplasia. NECK: No JVP. No cervical or supraclavicular or submandibular adenopathy. LUNGS: Clear bilaterally. CHEST: Regular rate and rhythm with no murmurs. ABDOMEN: Obese. She has hypoactive, but present bowel sounds in all quadrants. Her liver and spleen are nonpalpable. She is exquisitely tender in the left lower quadrant with guarding. EXTREMITIES: No edema, rashes, or ulcers. NEUROLOGIC: She is oriented x3. Her strength is 5/5. DIAGNOSTIC STUDIES/LAB DATA: Labs: Lactate 1.2. White blood cells 6.8, hemoglobin 14.4, platelets 104. Sodium 134, potassium 4.2, chloride 97, bicarb 30, BUN 13, creatinine 0.91, glucose 344, magnesium 1.8. CRP 62.46. Urinalysis is positive for glucosuria. Abdomen and pelvis CT with contrast shows infectious colitis, proximal transverse colon to rectum and unchanged, nonspecific splenomegaly. ASSESSMENT AND PLAN: This is a 53-year-old female with a history of C. diff colitis and ischemic colitis who presents to the emergency department with abdominal pain, diarrhea, nausea, and vomiting for 1 week. 1. Colitis. C. diff is positive in the emergency department. However, I am also suspicious for recurrent ischemic colitis as she did have a biopsy in February that suggested ischemic colitis. Her lactic acid is normal. At this point, my differential is that her clinical picture suggests ischemic and infectious colitis again and this is her first recurrence of C. diff colitis. The last course was treated with p.o. vancomycin, so I am resuming p.o. vancomycin. Regarding the concern for ischemic colitis, I am consulting GI as she may need a recurrent sigmoidoscopy versus observation as this was proven in February. She is already optimized medically for ischemic colitis with statin and aspirin. Her statin could be increased in dose, but I will defer this to Dr. Rodriguez. She may also benefit from a CT angio of her abdomen at some point. I am giving her symptom management with pain medicine and antiemetics. 2. Type 2 diabetes. I am halving her nocturnal Lantus dose since she says she is not eating much and I am ordering her mealtime insulin should she decide to eat. 3. Chronic pain syndrome. I am continuing her home pain medication. 4. Chronic thrombocytopenia and splenomegaly. This has been documented in prior admissions and her thrombocytopenia seems about at baseline at this time. 5. DVT prophylaxis. Contraindicated in the setting of GI bleeding. 6. Diet. Clear liquids. [id number]/[facility] #: [id number] [facility]ITAL[facility]
[2018-04-28] MEDS: NS 0.9% 1000 ML* 1,000 ML IV SCH (21:48)
[2018-04-29] MEDS: Ondansetron INJ* 2 MG/ML VIAL IV PRN ×2 (03:26→10:56)
[2018-04-29] MEDS ORDERED: Levothyroxine TAB* 112 MCG TAB PO SCH (06:00)
[2018-04-29 07:03] LABS: Hematocrit 39 % (35-47); Hemoglobin 12.8 g/dl (12.0-16.0); Mean Corpuscular HGB Conc 33 g/dl (31-36); Mean Corpuscular Hemoglobin 30 pg (27-31); Mean Corpuscular Volume 89 fL (80-97); Mean Platelet Volume 10.2 fL (7.4-10.4); Platelet Count 88 10^3/ul (150-450); Red Blood Count 4.33 10^6/ul (4.00-5.40); Red Cell Distribution Width 15 % (10.5-15); White Blood Count 6.1 10^3/ul (3.5-10.8)
[2018-04-29 07:17] LABS: BUN/Creatinine Ratio 12.8 (8-20); Calcium 8.8 mg/dL (8.6-10.3); EGFR Non-African American 77.9 (>60); Potassium 3.8 mmol/L (3.5-5.0)
[2018-04-29 07:43] LABS: ABS Basophils 0 10^3/ul (0-0.2); ABS Eosinophils 0.1 10^3/ul (0-0.6); ABS Lymphocytes 1.5 10^3/ul (1.0-4.8); ABS Monocytes 0.3 10^3/ul (0-0.8); ABS Neutrophils 4.2 10^3/ul (1.5-7.7); ABS Nucleated RBC 0 10^3/ul; Eosinophil % 2.1 %; Lymphocyte % 23.9 %; Nucleated Red Blood Cells % 0.1
[2018-04-29] MEDS: Insulin LISPRO* 1 UNITS UNIT SUBCUT SCH ×3 (08:59→17:05)
[2018-04-29] MEDS: Insulin GLARGINE(*) 1 UNITS UNIT SUBCUT SCH (09:00)
[2018-04-29] MEDS: Morphine TAB Extended Release (*) 30 MG TAB.ER PO SCH ×2 (09:00→21:10)
[2018-04-29] MEDS ORDERED: Insulin GLARGINE(*) 1 UNITS UNIT SUBCUT SCH (09:00)
[2018-04-29] MEDS: Atorvastatin* 10 MG TAB PO SCH (09:00)
[2018-04-29] MEDS: Pregabalin CAP(*) 100 MG PO SCH ×3 (09:00→21:10)
[2018-04-29] MEDS: Sertraline* 50 MG TAB PO SCH (09:00)
[2018-04-29 09:47] LABS: C Reactive Protein 43.88 mg/L (<8.01)
[2018-04-29] MEDS: NS 0.9% 1000 ML* 1,000 ML IV SCH ×2 (10:26→21:10)
[2018-04-29] MEDS: Vancomycin CAP* 125 MG CAP PO SCH ×4 (10:26→21:10)
[2018-04-29 11:37] LABS: TSH (Thyroid Stimulating Horm) 2.58 mcIU/mL (0.34-5.60)
[2018-04-29] MEDS ORDERED: PROCHLORPERAZINE INJ 5 MG/ML 2 ML VIAL ONE (12:18)
--- NOTE | 2018-04-29 12:21 | CONS ---
CONSULTATION REPORT: DATE OF CONSULT: 04/29/18 REQUESTING PROVIDER: Dr. Kaylie Rodriguez. CONSULTING SERVICE: Infectious Disease. REASON FOR CONSULT: C. difficile colitis, recurrent. IMPRESSION: 1. Clostridium difficile colitis. This is her second episode in the last 2 months. She had initially been on an oral antibiotic before her first episode. The colonoscopy in February also showed ischemic colitis. 2. Type 2 diabetes. 3. Obesity. 4. Chronic thrombocytopenia. RECOMMENDATIONS: Agree with vancomycin 125 mg by mouth 4 times daily for 2 weeks, then 3 times a day for a week, then 2 times a day for a week, then once daily for a week and then every other day for 2 weeks and every third day for 2 weeks. HISTORY OF PRESENT ILLNESS: This is a 53-year-old woman who had C. difficile colitis in February which improved with vancomycin. A followup colonoscopy showed ischemic colitis. Her bowels slowly got back to normal for her, which was a 1 to 2 bowel movements a day that were reasonably formed. Then, last week she developed some constipation, had some senna and about 2 days later had an onset of liquid bloody mucus stools with lower abdominal pain, did not predominantly on one side or the other. She had some chills, no fevers. Her appetite was off. Because of worsening diarrhea up to 10 times a day, she came to the hospital on 04/28/18. C. difficile test was positive. CT of the abdomen and pelvis showed colitis on the proximal transverse colon to the rectum. Today, she has not had a bowel movement, her last one last night was small liquid. Her belly pain is a little bit better today. She is sipping fluids and tolerating that well. PAST MEDICAL HISTORY: 1. C. difficile colitis. 2. Ischemic colitis. 3. Thrombocytopenia. 4. Obesity. 5. Type 2 diabetes. 6. Hypothyroidism. 7. Anxiety. 8. Chronic pain. ALLERGIES: SULFA and CODEINE. MEDICATIONS: 1. Lipitor. 2. Ferrous sulfate. 3. Insulin glargine. 4. Vicodin. 5. Insulin lispro. 6. Levothyroxine. 7. Morphine. 8. Pregabalin. 9. Sertraline. 10. Vancomycin 125 mg by mouth 4 times a day. FAMILY HISTORY: No recurrent infections. No C. difficile colitis. SOCIAL HISTORY: She lives in [place] with her , her daughter and son-in- law. No sick contacts. No travel. REVIEW OF SYSTEMS: All negative except as noted above to a 14-point review of systems. PHYSICAL EXAM: Vital Signs: Temperature 36.6, heart rate 66, respiratory rate 16, blood pressure 125/56, oxygen saturation 91% on room air. In general, she is awake, not in distress. Neurologic: She is oriented x3. Follows all commands. HEENT: There is no conjunctival hemorrhage. Oropharynx without lesions. Neck: Neck is supple without mass. Heart is regular rate and rhythm without murmurs, rubs, or gallops. Lungs are clear to auscultation bilaterally. Abdomen: Bowel sounds present. It is soft. There is lower abdominal tenderness to palpation without rebound. Skin: There is no rash or splinter hemorrhage. LABORATORY DATA: White blood cell count 6, hemoglobin 12, platelets 88. Creatinine 0.7, CRP 44. Please see impression and recommendations as outlined above, which I discussed with Dr. Rodriguez. Thank you for asking me to see Philip Gely in consultation. [id number]/[facility] #: [id number] MARIA
[2018-04-29] MEDS ORDERED: PROCHLORPERAZINE INJ 5 MG/ML 2 ML VIAL IV PRN (12:29)
[2018-04-30] MEDS: Levothyroxine TAB* 112 MCG TAB PO SCH (05:49)
[2018-04-30] MEDS ORDERED: Levothyroxine TAB* 125 MCG TAB PO SCH (06:00)
[2018-04-30] MEDS: NS 0.9% 1000 ML* 1,000 ML IV SCH (06:44)
[2018-04-30] MEDS: Atorvastatin* 10 MG TAB PO SCH (08:32)
[2018-04-30] MEDS: Sertraline* 50 MG TAB PO SCH (08:32)
[2018-04-30] MEDS: Insulin LISPRO* 1 UNITS UNIT SUBCUT SCH ×3 (08:32→17:11)
[2018-04-30] MEDS: Insulin GLARGINE(*) 1 UNITS UNIT SUBCUT SCH (08:32)
[2018-04-30] MEDS: Morphine TAB Extended Release (*) 30 MG TAB.ER PO SCH ×2 (08:33→21:40)
[2018-04-30] MEDS: Vancomycin CAP* 125 MG CAP PO SCH ×4 (08:34→21:40)
[2018-04-30] MEDS ORDERED: Ferrous Sulfate TAB* 325 MG PO SCH (09:00)
[2018-04-30] MEDS: Pregabalin CAP(*) 100 MG PO SCH ×3 (09:27→21:40)
--- NOTE | 2018-04-30 13:42 | CONS ---
CC: Dr. Rodriguez * CONSULTATION REPORT: DATE OF CONSULT: 04/29/18 REQUESTING PHYSICIAN: Dr. Nunes. INDICATION: Diarrhea. NARRATIVE: Ms. Hong is a very pleasant 53-year-old female who has a history of insulin-requiring diabetes, morbid obesity, chronic pain, hypothyroid, fatty liver, history of ischemic colitis in the past, history of C. diff colitis in the past, and thrombocytopenia, who states that she has been having a lower pelvic pain and diarrhea over the past couple of weeks. She states that the diarrhea began first definitely about 2 weeks ago. She had occasional nausea and vomiting. She did have an episode she believes the day before , however that resolved; and then on , she had some nausea, vomiting , and constipation at that time and then a few days later, the diarrhea began. The diarrhea had definitely been present over the past week. She denies any fevers or chills. She does have some blood mixed in with her stool. She really does not have much of an appetite. She eventually presented to the emergency room for the above symptoms. PAST MEDICAL HISTORY: Please see the HPI. PAST SURGICAL HISTORY: Cholecystectomy, x4, hysterectomy, lysis of adhesions. MEDICATIONS: As an outpatient include: 1. Metformin. 2. Insulin. 3. Iron. 4. Atorvastatin. 5. Levothyroxine. 6. Lyrica. 7. Hydrocodone. 8. Senna. ALLERGIES: SULFA and CODEINE. FAMILY HISTORY: She denies any GI malignancies in the family. SOCIAL HISTORY: She denies any tobacco. No alcohol or IV drug use. REVIEW OF SYSTEMS: Twelve systems were reviewed, other than that mentioned in the HPI were unremarkable. PHYSICAL EXAM: Temperature is 98.2, blood pressure is 117/59, pulse is 64, respiratory rate of 20, O2 sat is 95%. General: Well-appearing female in no apparent distress, alert, oriented, pleasant, and fluent. HEENT: Mucous membranes are moist without lesions, ulcers, or exudates. Neck is supple, trachea is midline. Head is normocephalic, atraumatic. Heart: Regular rate and rhythm. No murmurs, rubs, or gallops. Lungs: Clear to auscultation bilaterally. No wheezes, rales, or rhonchi. Abdomen is obese. Positive bowel sounds, soft. Mild pelvic tenderness. No rebound, no guarding, no masses were felt. Skin is warm and dry. DIAGNOSTIC STUDIES/LAB DATA: Labs of note, white count is 6.1, hemoglobin is 12.8 and platelets of 88. Sodium 136, BUN 10, creatinine 0.78. She does have a CT abdomen and pelvis from yesterday that reveals infectious colitis in the proximal transverse colon to the rectum and splenomegaly. ASSESSMENT AND PLAN: This is a very pleasant 53-year-old female with a history of Clostridium difficile colitis and ischemic colitis in the past. At this point, I am favoring a Clostridium difficile colitis. She does have a positive Clostridium difficile titer. Dr. Woo from Infectious Disease has seen her already. She is on vancomycin. She had not had a bowel movement in about 24 hours. As she states that she is feeling a little bit better, I would recommend that we continue with the vancomycin. I do not think we need to perform a flexible sigmoidoscopy right now. I would continue to follow her clinically and see how she does. We will continue to follow along very closely. [id number]/[facility] #: [id number] [facility]
[2018-05-01] MEDS: Levothyroxine TAB* 112 MCG TAB PO SCH (05:34)
[2018-05-01 07:40] VITALS: BP 110/55
[2018-05-01] MEDS: Sertraline* 50 MG TAB PO SCH (08:24)
[2018-05-01] MEDS: Atorvastatin* 10 MG TAB PO SCH (08:24)
[2018-05-01] MEDS: Morphine TAB Extended Release (*) 30 MG TAB.ER PO SCH (08:24)
[2018-05-01] MEDS: Insulin GLARGINE(*) 1 UNITS UNIT SUBCUT SCH (08:24)
[2018-05-01] MEDS: Pregabalin CAP(*) 100 MG PO SCH (08:25)
[2018-05-01] MEDS: Vancomycin CAP* 125 MG CAP PO SCH (08:25)
[2018-05-01] MEDS: Insulin LISPRO* 1 UNITS UNIT SUBCUT SCH (08:25)
--- NOTE | 2018-05-01 12:01 | DS ---
CC: Dr. Ganesh Bryan * DISCHARGE SUMMARY: DATE OF ADMISSION: 04/28/18 DATE OF DISCHARGE: 05/01/18 DISCHARGE DIAGNOSES: 1. Colitis due to Clostridium difficile. 2. Type 2 diabetes mellitus. 3. Hypothyroidism. 4. Obesity. 5. History of previous Clostridium difficile colitis. 6. History of ischemic colitis. 7. Social anxiety. 8. History of bacterial vaginitis. 9. Chronic low back pain. 10. Chronic thrombocytopenia. HISTORY: Cristy Hong is a 53-year-old woman admitted with abdominal pain and diarrhea. Please see the dictated admission note for details of the present illness, past medical history, family history, social and personal history, review of systems, and physical examination. LABORATORY DATA: CBC on 04/28/18, WBC 6.8, H and H 14.4/43, MCV 89, PLT 104K. CBC on 04/29/18, WBC 6.1, H and H 12.8/39, MCV 89, PLT 88K. Chemistries on admission: Sodium 134, potassium 4.2, chloride 97, CO2 of 30, BUN and creatinine 13/0.91, glucose 344, magnesium 1.8, alk phos 155. Rest of her comprehensive metabolic panel was abnormal for globulin 4.1. C-reactive protein was 62.46, on 04/28/18, came down to 43.88 on 04/29/18. Blood sugars were monitored throughout her hospitalization, ranged from 82 to 233. Lactic acid was 1.2 on 04/28/18, repeat 0.7, magnesium was 1.8. Urinalysis yellow cloudy, specific gravity 1.013. Dipsticks negative except for urine glucose 3+. Stool for C. diff was positive for toxigenic C. diff 0 to 7 present and negative. Stool C and S was negative. Occult blood was negative. Lactoferrin was positive. IMAGING: CT of the abdomen and pelvis showed changes consistent with infectious colitis in the proximal transverse colon to the rectum, splenomegaly , unchanged. CONSULTATIONS: GI, Dr. Rasheed recommended vancomycin. ID consultation, Dr. Woo recommended prolonged tapering course of vancomycin. HOSPITAL COURSE: The patient was admitted and treated for C. diff colitis. She received vancomycin. She originally got IV fluids. Her diet was clear liquids, advanced to a consistent carbohydrate, transitional diet as tolerated. The frequency of bowel movements decreased and then she started to eat, had 4 stools prior to admission, which were loose. Her abdominal pain resolved. She felt improved. She was felt eager to go home on the day of discharge. Her blood sugars were monitored. She was continued on her other usual medications. MEDICATIONS: Her medications at the time of discharge are: 1. Vancomycin 125 mg 4 times a day x2 weeks, t.i.d. x1 week, b.i.d. x1 week, daily x1 week, every other day x2 weeks, and then q. third day for 2 weeks. 2. Januvia 100 mg daily. 3. Sertraline 50 mg daily. 4. Lyrica 100 mg t.i.d. 5. Embeda ER 60/2.4 b.i.d. 6. Metformin 1000 mg twice a day. 7. Levothyroxine 112 mcg daily. 8. Humalog 15 units before meals. 9. Lantus 40 units daily. 10. Iron sulfate 325 mg every other day. 11. Atorvastatin 10 mg daily. DIET: She was told to be on a consistent carbohydrate diet and to avoid greasy foods and roughage until her stools are back to normal. ACTIVITY: As tolerated. She should follow up with me in 1 to 2 weeks. [id number]/[facility] #: [id number] MARIA
== END 2018-05-01 11:18 | disposition home or self-care (01) | DRG 248 ==
LOC: ED 15:16 → MEDTELE 20:05
PROVIDERS: ADMIT Internal Medicine; ATTEND Internal Medicine Geriatric Medicine
DX: A04.71 Enterocolitis due to Clostridium difficile, recurrent (principal); E66.01 Morbid (severe) obesity due to excess calories; E11.9 Type 2 diabetes mellitus without complications; I10 Essential (primary) hypertension; E78.00 Pure hypercholesterolemia, unspecified; M19.90 Unspecified osteoarthritis, unspecified site; E03.9 Hypothyroidism, unspecified; G89.4 Chronic pain syndrome; D69.6 Thrombocytopenia, unspecified; R16.1 Splenomegaly, not elsewhere classified; K76.0 Fatty (change of) liver, not elsewhere classified; M54.5 Low back pain; F41.8 Other specified anxiety disorders; M79.605 Pain in left leg; M79.604 Pain in right leg; Z86.19 Personal history of other infectious and parasitic diseases; Z88.5 Allergy status to narcotic agent; Z88.2 Allergy status to sulfonamides; Z90.710 Acquired absence of both cervix and uterus; Z83.3 Family history of diabetes mellitus; Z90.49 Acquired absence of other specified parts of digestive tract; Z56.0 Unemployment, unspecified; Z68.37 Body mass index [BMI] 37.0-37.9, adult; Z79.4 Long term (current) use of insulin
CPT/HCPCS: 36415; 74177; 80048; 80053; 81003; 82272; 83605; 83630; 83690; 83735; 84443; 85025; 86140; 87045; 87046; 87077; 87493; 87899; 99284; A9270-GY; J0780; J2270; J2405; Q9967

== ENCOUNTER 2018-08-14 09:15 | Inpatient (IN) | payer BC, MEDICAID ==
[2019-01-21] MEDS ORDERED: Buffered Lidocaine 1% SYRIN* 1 ML/SYRINGE INTRADERM ONE (11:35)
[2019-01-22] MEDS ORDERED: Dexamethasone IV* 4 MG/ML 1 ML (4 MG) IV SLOW PU ONE (06:00)
[2019-01-22] MEDS ORDERED: Lactated Ringers 1000 ML Bag* 1,000 ML IV SCH (06:00)
[2019-01-22] MEDS ORDERED: Famotidine TAB* 20 MG PO ONE (06:00)
--- OUTSIDE RECORDS SUMMARY | 2019-01-22 08:30 | XMS REPORT ---
:1965 Author Organization [facility] Care Team Providers Name Role Phone Lucas Duggan Unavailable Unavailable PROBLEMS Unknown Problems ALLERGIES No Information ENCOUNTERS Encounter Location Date Diagnosis [place] [address], [place] Feb, [address] Feb, [address] Dec, [address] Jan, Pulpitis K04.0 [address] Jan, [address] Nov, [address] August, [address] August, [address] Apr, [address] [facility] [address] [facility] Mar, Dental abscess [address] [place] [address] Jan, [address], [place] Dec, [address], [place] Oct, [address] Sep, [address] Sep, [address] IMMUNIZATIONS No Known Immunizations SOCIAL HISTORY Never Assessed REASON FOR REFERRAL FUNCTIONAL STATUS PLAN OF CARE VITAL SIGNS MEDICATIONS Unknown Medications PROCEDURES Procedure Date Ordered Result Body Site LTD ORAL EVALUATION-PROBLEM FOCUS Jan 09, 2019 RESULTS No Results REASON FOR VISIT consult for partial Insurance Providers [facility] Health Health Member Patient Patient Patient Patient Patient Subscriber Subscriber Subscriber Group Insurance Plan Plan Plan Plan ID Relationship Address Phone Name Date of ID Name Date of No Type Insurance Insurance Insurance Coverage to Subscriber Address Phone Name Dates Blue [phone] Blue self Cristy [id number] [place] [id number] [place] [address] [facility] Medical [address] Blue [phone] Blue self Cristy [id number] Choice Opt [address] Choice [address] [place] [address] [place] [id number] [place] [facility] Self [facility] [address] [id number] [phone] Medicaid self Cristy [id number] Wrap [facility] [address] [place] [id number]
[2019-01-22] MEDS ORDERED: Heparin VIAL(*) 5000 UNITS/ML VIAL (FIVE THOUSAND) ONE (09:03)
[2019-01-22] MEDS ORDERED: Dexamethasone IV* 4 MG/ML 1 ML (4 MG) ONE (09:03)
[2019-01-22] MEDS ORDERED: Famotidine IV* 10 MG/ML 2 ML (20 mg) ONE (09:04)
[2019-01-22] MEDS ORDERED: ceFAZolin 1 GM ADVAN(*) 1 GM ADDV.VIAL IVPB ONE (09:04)
[2019-01-22] MEDS ORDERED: ceFAZolin 2 GM in NS PREMIX(*) 2 GM/100 ML BAG IVPB ONE (09:04)
[2019-01-22] MEDS ORDERED: Famotidine TAB* 20 MG ONE (09:34)
[2019-01-22] MEDS ORDERED: Rocuronium* 10 MG/ML VIAL ONE ×2 (10:21→11:55)
[2019-01-22] MEDS ORDERED: Propofol* 10 MG/ML 20 ML BTL ONE (10:21)
[2019-01-22] MEDS ORDERED: fentaNYL* 50 MCG/ML 5 ML VIAL (250 MCG VIAL) ONE (10:21)
[2019-01-22] MEDS ORDERED: Midazolam* 1 MG/ML 5 ML VIAL (5 MG) ONE (10:21)
[2019-01-22] MEDS ORDERED: Ondansetron INJ* 2 MG/ML VIAL ONE ×2 (10:21→14:22)
[2019-01-22] MEDS ORDERED: Lidocaine 2% PF * 5 ML VIAL ONE (10:21)
[2019-01-22] MEDS ORDERED: Bupivacaine 0.25% EPI 200,000* 30 ML SDV ONE ×2 (11:02→11:58)
[2019-01-22] MEDS ORDERED: Methylene Blue 0.5 %* 50 MG/10 ML AMP IV ONE (11:02)
[2019-01-22] MEDS ORDERED: Sugammadex * 200 MG/2 ML VIAL IV PUSH ONE (11:41)
[2019-01-22] MEDS ORDERED: fentaNYL* 50 MCG/ML 2 ML VIAL (100 MCG VIAL) ONE ×2 (12:03→15:31)
[2019-01-22] MEDS ORDERED: Ondansetron INJ* 2 MG/ML VIAL IV PRN (13:43)
[2019-01-22] MEDS ORDERED: Naloxone* 0.4 MG/ML 1 ML VIAL IV PRN (13:43)
[2019-01-22] MEDS ORDERED: DiMENhydriNATE IV* 50 MG/ML VIAL IV PUSH PRN (13:43)
[2019-01-22] MEDS ORDERED: HYDROmorphone INJ1* 1 MG/ML SYRINGE IV PRN (13:43)
[2019-01-22] MEDS ORDERED: Scopolamine 1.5 mg* PATCH TRANSDERM PRN (13:43)
[2019-01-22] MEDS ORDERED: DiMENhydriNATE IV* 50 MG/ML VIAL ONE (14:22)
[2019-01-22] MEDS ORDERED: Scopolamine 1.5 mg* PATCH ONE (14:22)
--- NOTE | 2019-01-22 14:24 | BRIEFOPN ---
Brief Operative/Procedure Note - Operation Details Pre-Op Diagnosis: morbid obesity Post-Op Diagnosis: same; also nodular liver (? cirrhosis) Procedures: laparoscopic Edgar en Y gastric bypass; lysis of adhesions; liver biopsy Surgeon(s)/Proceduralists: Irvin. Assist: BELKIS Martinez Anesthesia: GET. IVF: 1500 ml crystalloid Estimated Blood Loss: < 50 ml Findings: as above Specimen(s)/Culture(s) Description: liver biopsy. one FRANCK drain Complications: none
[2019-01-22] MEDS ORDERED: Acetaminophen ADULT LIQ* 650 MG/20.3 ML UDC PO PRN (14:37)
[2019-01-22] MEDS ORDERED: Dextrose 50% VIAL 50 ml IV PUSH PRN (14:47)
[2019-01-22] MEDS ORDERED: Metoclopramide IV* 5 MG/ML 2 ML VIAL ONE (14:52)
[2019-01-22] MEDS: Metoclopramide IV* 5 MG/ML 2 ML VIAL IV PRN ×2 (14:57→21:22)
[2019-01-22] MEDS: fentaNYL* 50 MCG/ML 2 ML VIAL (100 MCG VIAL) IV PRN ×2 (15:30→15:33)
[2019-01-22] MEDS: Lactated Ringers 1000 ML Bag* 1,000 ML IV SCH ×2 (16:26→23:06)
[2019-01-22] MEDS: Insulin LISPRO* 1 UNITS UNIT SUBCUT SCH (18:16)
[2019-01-22] MEDS: Ketorolac INJ* 30 MG/ML 1 ML VIAL IV PRN (18:16)
[2019-01-22] MEDS: Ondansetron INJ* 2 MG/ML VIAL IV PRN (18:17)
[2019-01-22] MEDS: HYDROmorphone INJ* 0.5 MG/0.5 ML SYRINGE IV SLOW PU PRN (21:22)
[2019-01-22] MEDS: Famotidine IV* 10 MG/ML 2 ML (20 mg) IV SLOW PU SCH (21:29)
[2019-01-22] MEDS: Heparin VIAL(*) 5000 UNITS/ML VIAL (FIVE THOUSAND) SUBCUT SCH (21:31)
[2019-01-23] MEDS: Insulin LISPRO* 1 UNITS UNIT SUBCUT SCH ×4 (00:06→19:19)
[2019-01-23] MEDS: HYDROmorphone INJ* 0.5 MG/0.5 ML SYRINGE IV SLOW PU PRN ×2 (01:36→06:29)
[2019-01-23] MEDS: Ondansetron INJ* 2 MG/ML VIAL IV PRN (01:37)
[2019-01-23] MEDS: Heparin VIAL(*) 5000 UNITS/ML VIAL (FIVE THOUSAND) SUBCUT SCH ×3 (06:10→21:31)
[2019-01-23] MEDS: Lactated Ringers 1000 ML Bag* 1,000 ML IV SCH (06:14)
[2019-01-23] MEDS: Ketorolac INJ* 30 MG/ML 1 ML VIAL IV PRN ×2 (08:10→17:19)
[2019-01-23] MEDS: Famotidine IV* 10 MG/ML 2 ML (20 mg) IV SLOW PU SCH ×2 (08:11→21:30)
--- NOTE | 2019-01-23 12:59 | PN ---
Progress Note - Progress Note Date of Service: 01/23/19 SOAP: Subjective: Pt seen and examined. Feeling well. OOB. good UO Objective: Temp Pulse Resp BP Pulse Ox 97.9 F 51 17 120/52 97 01/23/19 11:28 01/23/19 11:28 01/23/19 11:28 01/23/19 11:28 01/23/19 11:28 Intake & Output 01/22/19 01/23/19 01/23/19 22:59 06:59 14:59 Intake Total 0 1966 Output Total 670 240 60 Balance -670 1726 -60 a and o x3, nad lungs clear abdo: soft/ ND/ incisional tenderness dressing intact FRANCK serosang ext wnl UGi wnl FS improving Assessment: POD 1 rygb, liver bx Plan: bariatric diet pain control d/c planning
[2019-01-23] MEDS: HYDROcodone/ACET. 7.5/325 LIQ* 15 ML UDC PO PRN ×2 (13:27→19:19)
[2019-01-23] MEDS: D5W 1/2 NS KCl 20 Meq 1000 ML* 1,000 ML IV SCH ×2 (14:25→21:44)
[2019-01-24] MEDS: Insulin LISPRO* 1 UNITS UNIT SUBCUT SCH ×2 (00:06→06:04)
[2019-01-24] MEDS: HYDROcodone/ACET. 7.5/325 LIQ* 15 ML UDC PO PRN ×2 (01:41→08:37)
--- NOTE | 2019-01-24 02:11 | OP ---
CC: Kaylie Rodriguez MD; [facility] * DATE OF OPERATION: 01/22/19 - ROOM #331 DATE OF : 69 SURGEON: Ganesh Bryan MD LIGHT RAIL TRANSIT OPERATOR: BELKIS Marrero ANESTHESIOLOGIST: Dr. Steele. ANESTHESIA: General. PRE-OP DIAGNOSES: Clinically severe obesity, obstructive sleep apnea. POST-OP DIAGNOSES: Clinically severe obesity, obstructive sleep apnea, and nodular liver. OPERATIVE PROCEDURE: Laparoscopic Edgar-en-Y gastric bypass, lysis of adhesions , liver biopsy. ESTIMATED BLOOD LOSS: Less than 50 cc. FLUIDS: 1500 cc of crystalloid fluids given. FINDINGS: As above with nodular liver. SPECIMEN: Liver biopsy. DRAINS: #10 FRANCK drain placed at the gastrojejunum. DESCRIPTION OF PROCEDURE: The patient was identified in the preoperative area. She was marked and consent signed. She was then taken back to the operating room, placed on the operating table in supine position. Preoperative antibiotics were given. Sequential devices were placed on bilateral lower extremities. General anesthesia was induced. The patient's abdomen was prepped and draped in standard surgical fashion. A time-out was performed. Folds of the umbilicus were elevated anteriorly and a Veress needle was inserted into the abdominal cavity which was then allowed to insufflate to a pressure of 15 mmHg. The patient tolerated the insufflation well. Hawkins between xiphoid and umbilicus, a 12-mm optical trocar was inserted. A laparoscope was inserted into this and there was no evidence of injury and the Veress needle was removed. Additional trocars were then placed in the following position: A 12 mm and a 5 mm in the left upper quadrant, 12 mm and a 5 mm in the right upper quadrant. The liver appeared bulky with nodularity, but we were able to lift this up with retractors and expose the anterior aspect of the stomach. At this point, I felt we can safely perform the procedure. We turned our attention to the inferior aspect of the abdomen. Lysis of adhesions was carried out, taking the omentum from the anterior abdominal wall with LigaSure device until this could be reflected superiorly. The omentum was then split at the mid transverse colon in the standard fashion. Next, the table was placed in a steep reverse Trendelenburg. A Ryan retractor was inserted through a subxiphoid incision and the liver was retracted anteriorly to the right exposing the gastroesophageal fat pad. The fat pad was then grasped and retracted towards right lower quadrant and blunt and sharp dissection was carried out to expose the left crura. The spleen was identified and this appeared normal in caliber. Next the stomach pouch was created placing a 45 mm sousa DODIE stapling device through retrogastric window at the lesser curvature. We completed the stomach pouch over an Nydia tube with additional 60 mm sousa DODIE stapling device. The pouch appeared appropriately sized. Hemostasis was achieved. Attention was then turned towards the ligament of Treitz. Small bowel was then counted off approximately 40 cm and in omega loop, this was brought up in apposition to the stomach pouch in the appropriate orientation, suturing what would become the Edgar limb to the lateral aspect of the stomach pouch. Next a gastrotomy was made over the Nydia tube and enterotomy was made and the anastomosis created with 30 mm sousa DODIE stapling device. Anastomosis was created to appropriate size. There was no bleeding. We then closed the defect with running 3- 0 PDS suture starting inferiorly and superiorly and tying them in the middle. This allowed us to place the Nydia tube through the anastomosis superiorly into the Edgar limb. We transected the omega loop to the appropriate site leaving about 1 cm cuff of afferent limb from the gastrojejunostomy. We then tested the gastrojejunostomy with methylene blue dye test and clamping distally on Edgar limb and negative blue dye test was achieved and the Nydia tube was removed by the anesthesiologist. Attention was then turned towards the Edgar limb. Approximately 75 cm was counted off and holding this tight, we then reviewed additional distal bowel through short orientation and the sizing and we could see a significant amount of distal jejunum and ileum. We then brought the common channel up towards the biliary pancreatic limb and created the jejunojejunostomy in the standard fashion using a 60 mm sousa DODIE stapling device and closing the common defects with 2-0 silk sutures in a figure -of- eight fashion. The mesenteric defect was closed similarly. There was hematoma on the mesentery, but this did not show any evidence of ischemia at the bowel itself. Next, a #10 FRANCK drain was placed in the abdomen and brought up over the gastrojejunostomy anastomosis. Attention was then turned towards the liver. The liver retractor was shifted so that we could perform biopsy on the left lateral aspect. A Checo-Cut biopsy forceps was then inserted and a portion of tissue taken and sent for the lab. Hemostasis was achieved with cautery and then we removed the liver retractor altogether. The FRANCK drain was brought out through the left lateral most port site. It was sutured to the skin with 3-0 Prolene suture. The abdomen was allowed to collapse and all skin incisions were reapproximated in a standard fashion followed by sterile dressing. The patient tolerated the procedure well and was woken up in the OR and transferred to the PACU in stable condition. [id number]/[facility] #: [id number] [facility]
[2019-01-24] MEDS: D5W 1/2 NS KCl 20 Meq 1000 ML* 1,000 ML IV SCH (06:03)
[2019-01-24] MEDS: Heparin VIAL(*) 5000 UNITS/ML VIAL (FIVE THOUSAND) SUBCUT SCH (06:04)
[2019-01-24] MEDS: Ondansetron INJ* 2 MG/ML VIAL IV PRN (06:08)
[2019-01-24 07:59] VITALS: BP 146/71
[2019-01-24] MEDS: Ketorolac INJ* 30 MG/ML 1 ML VIAL IV PRN (08:32)
[2019-01-24] MEDS: Metoclopramide IV* 5 MG/ML 2 ML VIAL IV PRN (08:32)
[2019-01-24] MEDS: Famotidine IV* 10 MG/ML 2 ML (20 mg) IV SLOW PU SCH (08:32)
--- NOTE | 2019-01-24 11:23 | DS ---
CC: [facility]; Dr. Kaylie Rodriguez; Neeta Pena NP, Pain Clinic.* DISCHARGE SUMMARY: DATE OF ADMISSION: 01/22/19 DATE OF DISCHARGE: 01/24/19 ATTENDING PHYSICIAN: Ganesh Bryan MD * (DICTATED BY MADELINE MCLEAN NP) HOSPITAL COURSE: Please refer to admission history and physical for admission details. The patient was taken to the operating room on Sunday01/22/19 and underwent laparoscopic Edgar-en-Y gastric bypass with liver biopsy by Dr. Bryan. She has had an uneventful postoperative course and as of the morning of discharge, she was tolerating 120 mL of clear liquids per hour; her pain was well controlled; nausea and dry heaves were resolved; she was passing flatus and voiding in large quantities. Her fingerstick blood sugar ranged between 150 and 170. PHYSICAL EXAMINATION: Vital Signs: Temperature 98.1, heart rate 51 to 60, respiratory rate 16, O2 saturation on room air 95%, blood pressure ranged from 102/48 to 146/70. General: Well-nourished, in no acute distress; ambulating in the halls. Lungs: Breath sounds bilaterally clear and equal. Heart: Regular rate and rhythm. No murmurs or rubs. Abdomen: Laparoscopic incision sites intact with Steri-Strips. No active bleeding or drainage or surrounding erythema; Jose Luis Causey drain was removed as instructed by Dr. Bryan. The drainage was serosanguineous. Bowel sounds are present and the abdomen is soft with appropriate incisional tenderness. Extremities: Nontender calves, no edema. IMPRESSION: Postoperative day 2, status post laparoscopic Rounx-en-Y gastric bypass with liver biopsy; doing very well. CONDITION: Stable. PLAN: Discharged home today; all of her home medications were reviewed and she was instructed to hold all of her diabetic medications except for Humalog and she will continue to check fingersticks at home; she is to schedule a followup appointment in the pain clinic within 1 week of discharge and also an appointment with her primary care provider Dr. Kaylie Rodriguez within 1 to 2 weeks ; she has a followup appointment with Dr. Bryan, Sunday01/28/19 at [facility]. She will follow the prescribed bariatric dietary guidelines. All of her questions were answered. TIME SPENT IN DISCHARGE: 60 minutes with 50% in [id number] patient education and coordination of care. MADELINE MCLEAN NP [id number]/[facility] #: [id number] MAR[facility]
== END 2019-01-24 10:45 | disposition home or self-care (01) | DRG 403 ==
LOC: AA 01-22 08:27 → SSU 01-22 14:30
PROVIDERS: ADMIT Surgery; ATTEND Surgery
PROC: 0DNU4ZZ Release Omentum, Percutaneous Endoscopic Approach (ICD-10-PCS; 2019-01-22)
PROC: 0FB24ZX Excision of Left Lobe Liver, Percutaneous Endoscopic Approach, Diagnostic (ICD-10-PCS; 2019-01-22)
PROC: 0D164ZA Bypass Stomach to Jejunum, Percutaneous Endoscopic Approach (ICD-10-PCS; principal; 2019-01-22 10:30)
DX: E66.01 Morbid (severe) obesity due to excess calories (principal); E11.65 Type 2 diabetes mellitus with hyperglycemia; G47.33 Obstructive sleep apnea (adult) (pediatric); K21.9 Gastro-esophageal reflux disease without esophagitis; M54.9 Dorsalgia, unspecified; F41.9 Anxiety disorder, unspecified; E03.9 Hypothyroidism, unspecified; K66.0 Peritoneal adhesions (postprocedural) (postinfection); E78.5 Hyperlipidemia, unspecified; F32.9 Major depressive disorder, single episode, unspecified; K76.0 Fatty (change of) liver, not elsewhere classified; Z68.37 Body mass index [BMI] 37.0-37.9, adult; Z79.84 Long term (current) use of oral hypoglycemic drugs; Z79.4 Long term (current) use of insulin; Z79.899 Other long term (current) drug therapy; Z88.6 Allergy status to analgesic agent; Z88.5 Allergy status to narcotic agent; Z88.2 Allergy status to sulfonamides; Z88.8 Allergy status to other drugs, medicaments and biological substances; Z83.3 Family history of diabetes mellitus; Z83.49 Family history of other endocrine, nutritional and metabolic diseases; Z80.9 Family history of malignant neoplasm, unspecified
CPT/HCPCS: 74246; 88307; 88313; A9270-GY; J0690; J1100; J1170; J1240; J1644; J1885; J2250; J2405; J2704; J2765; J3010

== ENCOUNTER 2019-08-03 06:09 | Inpatient (IN) | payer BC, OTHER ==
[2019-08-03] MEDS ORDERED: Morphine 4 MG/ML VIAL (1 ml) 4 MG/ML VIAL IV ONE ×2 (06:43→09:22)
[2019-08-03] MEDS ORDERED: Ondansetron INJ* 2 MG/ML VIAL IV ONE (06:43)
[2019-08-03] MEDS ORDERED: NS 0.9% 1000 ML** 1,000 ML IV ONE ×3 (06:43→09:12)
--- NOTE | 2019-08-03 06:54 | ED ---
Abdominal Pain/Female - HPI Summary HPI Summary: Pt. is a 54 y.o female who presents to the ER for diffuse abdominal pain, vomiting, and diarrhea. Pt. notes diarrhea over the last 2-3 days. Pt. woke up around 0300 with severe diffuse abd. pain that radiated into chest. Notes nausea and vomiting after pain started. Past medical hx of gastric bypass. Pt. notes pain radiates into shoulders. Denies chest pain, sob, cough, fever. Sxs are moderate in severity. Past medical hx of c diff, obesity, DM. No current modifying factors. - History of Current Complaint Chief Complaint: EDNauseaVomitDiarrh Stated Complaint: N/V/D PER PT Time Seen by Provider: 08/03/19 06:17 Hx Obtained From: Patient Pain Intensity: 9 Allergies/Adverse Reactions: Allergies Allergy/AdvReac Type Severity Reaction Status Date / Time glipizide Allergy Severe Blisters Verified 08/03/19 06:14 Sulfa (Sulfonamide Allergy Severe rash and Verified 08/03/19 06:14 Antibiotics) blisters venlafaxine [From Effexor] Allergy Severe Vomiting Verified 08/03/19 06:14 simvastatin Allergy Intermediate upset Verified 08/03/19 06:14 stomach meperidine [From Demerol] AdvReac Severe GI Upset Verified 08/03/19 06:14 codeine AdvReac Mild Nausea Verified 08/03/19 06:14 [From Tylenol-Codeine #3] Home Medications: Home Medications Sertraline* [Zoloft*] 100 mg PO QAM 02/20/18 [History Confirmed 08/03/19] Levothyroxine TAB* [Synthorid 112 MCG TAB*] 112 mcg PO EVERY OTHER DAY 08/07/18 [History Confirmed 08/03/19] Levothyroxine TAB* [Synthroid 125 MCG TAB*] 125 mcg PO EVERY OTHER DAY 01/15/19 [History Confirmed 08/03/19] fentaNYL PATCH 25 MCG/HR* [Duragesic PATCH 25 Mcg/Hr*] 25 mcg TRANSDERM Q72HR [History Confirmed 08/03/19] Hydrocodone/Acetaminophen [Condon 7.5-325 Tablet] 1 each PO TID PRN MDD 3 [History Confirmed 08/03/19] PMH/Surg Hx/FS Hx/Imm Hx Previously Healthy: Yes Endocrine/Hematology History: Reports: Hx Diabetes, Hx Thyroid Disease, Hx Anemia Cardiovascular History: Reports: Hx Hypercholesterolemia, Hx Hypertension, Other Cardiovascular Problems/Disorders - Elevated cholesterol Denies: Hx Congestive Heart Failure, Hx Pacemaker/ICD Respiratory History: Reports: Hx Sleep Apnea GI History: Reports: Hx Gastroesophageal Reflux Disease, Other GI Disorders - constipation and hospital for GI issues, History: Reports: Other Problems/Disorders - Hysterectomy Denies: Hx Dialysis, Hx Renal Disease Musculoskeletal History: Reports: Hx Arthritis, Hx Back Problems, Other Musculoskeletal History - Chronic Bilateral Leg Pain Denies: Hx Tendonitis Sensory History: Reports: Hx Contacts or Glasses Denies: Hx Cataracts, Hx Hearing Aid Opthamlomology History: Reports: Hx Contacts or Glasses Denies: Hx Cataracts Neurological History: Reports: Hx Nerve Disease - diabetic neuropathy Denies: Other Neuro Impairments/Disorders Psychiatric History: Reports: Hx Anxiety - sertraline, Hx Depression Denies: Hx Panic Disorder, Other Psychiatric Issues/Disorders - Cancer History Hx Chemotherapy: No Hx Radiation Therapy: No - Surgical History Surgery Procedure, Year, and Place: X4, Cholecystectomy, LEFT Rotator Cuff Repair, Breast Reduction, Hysterectomy, LSP surgery for slipped discs 11/27 , Ovarian cysts Hx Anesthesia Reactions: Yes - has nausea and vomiting after genral anesthesia Infectious Disease History: No Infectious Disease History: Reports: Hx Clostridium Difficile Denies: History Other Infectious Disease, Traveled Outside the [place] in Last 30 Days - Family History Known Family History: Positive: Diabetes Negative: Cardiac Disease - Social History Occupation: Unemployed Lives: With Family Alcohol Use: None Hx Substance Use: No Substance Use Type: Reports: None Substance Use Comment - Amount & Last Used: ms contin and Hydrocodone Hx Tobacco Use: No Smoking Status (MU): Never Smoked Tobacco Have You Smoked in the Last Year: No Review of Systems Constitutional: Negative Negative: Fever, Chills Positive: Chest Pain Respiratory: Negative Negative: Shortness Of Breath, Cough Positive: Abdominal Pain, Vomiting, Diarrhea, Nausea Genitourinary: Negative Neurological/Mental Status: Negative All Other Systems Reviewed And Are Negative: Yes Physical Exam Triage Information Reviewed: Yes Vital Signs On Initial Exam: Initial Vitals Temp Pulse Resp BP Pulse Ox 96.6 F 66 16 96/65 98 08/03/19 06:10 08/03/19 06:10 08/03/19 06:10 08/03/19 06:10 08/03/19 06:10 Vital Signs Reviewed: Yes Appearance: Positive: Pain Distress - Pt. sitting on side of bed, appears in pain but nontoxic. Skin: Positive: Warm, Dry Head/Face: Positive: Normal Head/Face Inspection Eyes: Positive: Normal, EOMI Neck: Positive: Supple Respiratory/Lung Sounds: Positive: Clear to Auscultation, Breath Sounds Present Cardiovascular: Positive: Normal, RRR Abdomen Description: Positive: Other: - Diffuse tenderness with guarding. Limited exam secondary to pt.'s pain. Neurological: Positive: Normal, CN Intact II-III Psychiatric: Positive: Affect/Mood Appropriate Procedures - Sedation Patient Received Moderate/Deep Sedation with Procedure: No Diagnostics - Vital Signs Vital Signs Temp Pulse Resp BP Pulse Ox 08/03/19 06:10 96.6 F 66 16 96/65 98 - Laboratory Result Diagrams: 08/03/19 07:04 08/03/19 07:04 Lab Statement: Any lab studies that have been ordered have been reviewed, and results considered in the medical decision making process. Abdominal Pain Fem Course/Dx - Course Course Of Treatment: Pt. with diffuse abd. pain, N/V and diarrhea. Afebrile. Initiall BP a bit low but improved with fluids. Pt. given IV fluids and pain medication. Will obtain labs and CT c/a/p given pain distribution. ECG done at 728 shows a sinus rhythm of 77bpm, left axis deviation, no STEMI, similar to prior tracing. Normal WBC. CMP show elevated lactic acid of 3.2, mag 1.5, mildly elevate liver enzymes. CT per radiology: IMPRESSION: 1. POSTOPERATIVE CHANGES ARE RELATED TO AN ANTECOLIC GURDEEP-EN-Y GASTRIC BYPASS. A. SUSPECTED LEAK ALONG THE ANTERIOR WALL OF THE RESIDUAL STOMACH IS ANNOTATED (SEE SCHAFFER. IMAGES ABOVE). THERE IS AIR IN THE EXCLUDED PORTION OF THE STOMACH. THE JEJUNOSTOMY IS. PATENT. 2. THERE IS PNEUMOPERITONEUM, SMALL VOLUME ASCITES AND STRANDING OF THE EPIGASTRIC. MESENTERIC FAT. 3. SUBJECTIVE CAUDATE HYPERTROPHY AND HEPATIC CAPSULAR NODULARITY. THIS CAN BE SEEN IN. SETTING OF EARLY CIRRHOSIS. RECOMMEND CORRELATION WITH LFTs. 4. SPLENOMEGALY (14.5 CM). 5. CHOLECYSTECTOMY. Case discussed with BELKIS Stout at 9:46 AM on August 03, 2019. 0929: Case discussed with oncall surgery, Dr. Wise, who will be in to see pt. in the ED. Zosyn and another liter of NS given. 2gms of mag and more pain meds also ordered. 0950: Pt. examined by Dr. Wise, will take to OR. Pt. has remained stable in the ED. - Diagnoses Differential Diagnosis: Positive: Abdominal Aortic Aneurysm, ACS, Appendicitis, Bowel Obstruction, Constipation, Diverticulitis, Peptic Ulcer Disease, Renal Colic Provider Diagnoses: Perforated stomach, Pneumoperitoneum, Hypomagnesemia - Critical Care Time Critical Care Time: 30-74 min - 30 minutes including direct pt. care and consultation. Excludes billable procedures. Critical Care Statement: Critical care time is provided exclusive of any time spent performing procedures. Discharge ED - Sign-Out/Discharge Documenting (check all that apply): Patient Departure - Discharge Plan Condition: Stable Disposition: ADMITTED TO [facility] Referrals: Kaylie Rodriguez MD [Primary Care Provider] - - Billing Disposition and Condition Condition: STABLE Disposition: Admitted to [facility]
[2019-08-03 07:29] LABS: ABS Eosinophils 0.1 10^3/ul (0-0.6); ABS Lymphocytes 1.2 10^3/ul (1.0-4.8); ABS Monocytes 0.3 10^3/ul (0-0.8); ABS Neutrophils 7.2 10^3/ul (1.5-7.7); Hematocrit 47 % (35-47); Hemoglobin 15.9 g/dL (12.0-16.0); Mean Corpuscular HGB Conc 34 g/dL (31-36); Mean Corpuscular Hemoglobin 31 pg (27-31); Mean Corpuscular Volume 92 fL (80-97); Mean Platelet Volume 12.4 fL (7.4-10.4); Platelet Count 122 10^3/uL (150-450); Red Blood Count 5.12 10^6 /uL (3.70-4.87); Red Cell Distribution Width 15 % (10-15); White Blood Count 8.8 10^3/uL (3.5-10.8)
[2019-08-03 07:42] LABS: Albumin 4.2 g/dL (3.2-5.2); BUN/Creatinine Ratio 18.2 (8-20); C Reactive Protein 5.15 mg/L (<8.01); Calcium 10.1 mg/dL (8.6-10.3); EGFR African American 81.6 (>60); EGFR Non-African American 67.5 (>60); Globulin 4.1 g/dL (2-4); Magnesium 1.5 mg/dL (1.9-2.7); Potassium 3.6 mmol/L (3.5-5.0); Total Bilirubin 1.3 mg/dL (0.2-1.0); Total Protein 8.3 g/dL (6.4-8.9)
[2019-08-03 07:44] LABS: Troponin I 0.01 ng/mL (<0.03)
[2019-08-03] MEDS ORDERED: Iodixanol* (CONTRAST) 320 MG/ML 100 ML SDV IV ONE (08:09)
[2019-08-03] MEDS ORDERED: Magnesium Sulfate 2 GM IV* 2 GM/50 ML BAG IVPB ONE (09:12)
[2019-08-03] MEDS ORDERED: Piperacillin/Tazobac ADVAN(*) 3.375 GM in NS 0.9% 100 ML* 100 ML IVPB ONE (09:20)
--- NOTE | 2019-08-03 09:30 | ED ---
Progress - Progress Note Progress Note: This is a 54-year-old female with a history of gastric bypass was saw in conjunction with her primary caregiver, Jeremy TAMAYO. She presents with a 2- 3 day history of loose watery stools, at 2:00 this morning she was awoken with severe and diffuse abdominal pain. She is currently a person under investigation for covid, therefore my history and examination occurred via technology. Full physical exam was performed by Jeremy TAMAYO. The patient' s voice is unsteady, sounded very uncomfortable, there was no respiratory distress. Review of her CT abdomen and pelvis revealed abdominal free air. Suspect perforated viscus (potentially perforated gastric bypass), Jeremy is initiating broad-spectrum antibiotics and emergent surgical consultation. Course/Dx - Course Course Of Treatment: ECG done at 0729 shows a sinus rhythm of 77bpm, left axis deviation, no STEMI, similar to prior tracing. - Diagnoses Provider Diagnoses: Perforated stomach, Pneumoperitoneum, Hypomagnesemia - Critical Care Time Critical Care Statement: Critical care time is provided exclusive of any time spent performing procedures. Discharge ED - Sign-Out/Discharge Documenting (check all that apply): Patient Departure - Discharge Plan Condition: Stable Disposition: ADMITTED TO [facility] Referrals: Kaylie Rodriguez MD [Primary Care Provider] - - Billing Disposition and Condition Condition: STABLE Disposition: Admitted to [facility]
[2019-08-03] MEDS ORDERED: DiMENhydriNATE IV* 50 MG/ML VIAL IV PUSH PRN (11:51)
[2019-08-03] MEDS ORDERED: fentaNYL* 50 MCG/ML 2 ML VIAL (100 MCG VIAL) IV PRN (11:51)
[2019-08-03] MEDS ORDERED: diPHENhydraMINE IV* 50 MG/ML 1 ml VIAL (BENADRYL) IV PRN (11:51)
[2019-08-03] MEDS ORDERED: Naloxone* 0.4 MG/ML 1 ML VIAL IV PRN (11:51)
[2019-08-03] MEDS ORDERED: Ondansetron INJ* 2 MG/ML VIAL IV PRN (11:51)
[2019-08-03] MEDS ORDERED: PROCHLORPERAZINE INJ 5 MG/ML 2 ML VIAL IV PRN (11:51)
[2019-08-03] MEDS ORDERED: Famotidine IV* 10 MG/ML 2 ML (20 mg) ONE (11:54)
[2019-08-03] MEDS ORDERED: Lactated Ringers 1000 ML Bag* 1,000 ML IV SCH (12:00)
[2019-08-03] MEDS ORDERED: Ondansetron INJ* 2 MG/ML VIAL ONE (12:08)
[2019-08-03] MEDS ORDERED: Propofol* 10 MG/ML 20 ML BTL ONE (12:08)
[2019-08-03] MEDS ORDERED: Rocuronium* 10 MG/ML VIAL ONE (12:08)
[2019-08-03] MEDS ORDERED: Lidocaine 2% PF * 5 ML VIAL ONE (12:08)
[2019-08-03] MEDS ORDERED: fentaNYL* 50 MCG/ML 2 ML VIAL (100 MCG VIAL) ONE ×3 (12:08→14:36)
[2019-08-03] MEDS ORDERED: Dexamethasone IV* 4 MG/ML 1 ML (4 MG) ONE (12:08)
[2019-08-03] MEDS ORDERED: Midazolam* 1 MG/ML 2 ML VIAL (2 MG) ONE (12:09)
--- NOTE | 2019-08-03 12:36 | HP ---
CC: [facility]; Bariatric CCM, Dr. Bryan; Dr. Kaylie Rodriguez HISTORY AND PHYSICAL: DATE OF ADMISSION: 08/03/19 CHIEF COMPLAINT: Severe upper abdomen and chest pain. HISTORY OF PRESENT ILLNESS: Ms. Cristy Hong is a very pleasant 54-year-old woman, who underwent a l aparoscopic gastric bypass in January [address] Bryan and has done well from this standpoint. She was at home last evening, developed some upper abdominal pain, rather sudden onset, it radiated u p into her chest, became quite severe. She had her bring her to the emergency room. She is noted to be hemodynamically stable with laboratory values including a normal white blood cell count. She had an elevated lactic acid and mild elevation in her liver transaminases and bilirubin. She underwent a CT scan of the chest, abdomen, and pelvis. I did review these images. This shows a large amount of free air in the upper abdominal cavity. There is a suspected leak along the anterior wall of the remnant stomach. There was no evidence of bowel distention. There was a small amount of free fluid as well. There was no abnormality noted on the chest portion of the study. Surgical consultation was obtained. She states she has been having some loose bowel movements over the past 3 days, but no fever, cough o r sore throat. She has had no unusual travel. There has been no exposure to COVID-19 virus, however , a COVID test has been sent and she is now presently a person under investigation. PAST MEDICAL HISTORY: 1. Morbid obesity. Her BMI has dropped to 28 from 37. 2. Obstructive sleep apnea. 3. Chronic low back pain. 4. Type 2 diabetes, off medications. 5. Depression. 6. Hypothyroidism. PAST SURGICAL HISTORY: 1. Laparoscopic cholecystectomy. 2. Laparoscopic gastric bypass. 3. Low back operation. 4. Left rotator cuff repair. 5. Hysterectomy. 6. section x4. MEDICATIONS: Include: 1. Fentanyl patch 25 mcg transdermally q.27 hours. 2. Zoloft 100 mg p.o. q.a.m. 3. Levothyroxine 125 mcg every other day alternating with the 112 mcg. 4. Hydrocodone 1 p.o. t.i.d. p.r.n. ALLERGIES: GLIPIZIDE, SULFA ANTIBIOTICS, EFFEXOR, SIMVASTATIN, DEMEROL, and CODEINE. FAMILY HISTORY: Diabetes in 4 siblings, and the mother and paternal grandmother. Cancer in her uncle . There is thyroid disease in an aunt, cousin, niece, brother, and half sister. SOCIAL HISTORY: She is and lives at home with her in [place]. She has a grown daughter , who lives with her. She denies tobacco or alcohol. She presently is not working. She denies the use of illicit drugs. REVIEW OF SYSTEMS: Difficult to obtain due to the patient's discomfort, but she denies any headache or sore throat. She has had no cough. She has had no fevers. Otherwise, review of systems as per ab ove. PHYSICAL EXAMINATION GENERAL: She is a well-developed, slightly overweight female, appears to be uncomfortable, but is aw aniket, alert, and conversive, and very pleasant. VITAL SIGNS: She is afebrile, pulse 74, blood pressure 116/87. HEENT: Oral mucosa is slightly dry. Trachea was midline. LUNGS: Clear to auscultation with diminished breath sounds at the bases. She has poor inspiratory e ffort. HEART: Regular rate and rhythm without murmurs, rubs or gallops. ABDOMEN: Slightly distended and somewhat firm. She has multiple laparoscopic incisions in the upper abdomen. There was a lower transverse incision without hernia. She has generalized pain with perit onitis, rebound and guarding, mainly in the upper abdomen consistent with acute peritonitis. PSYCHIATRIC: She is awake, alert, and oriented x3. She has normal judgment and insight. IMPRESSION: 1. Peritonitis with pneumoperitoneum noted on the CT scan in a patient status post laparoscopic david david bypass in January of 2019. It was rather sudden onset last night and appears to have a perforate d gastric remnant or gastric pouch anastomosis. Obviously, may be a duodenal ulcer perforation as we ll. 2. Person under investigation due to 3 or 4 days of diarrhea and a COVID testing has been sent. PLAN: I recommended that we proceed emergently with diagnostic laparoscopy with possible exploratory laparotomy for repair of a perforated viscus. This will require a full COVID precautions and this h as been discussed with both anesthesia staff and the operating room facility, and we will expedite an d implement our preplanned protocols. She will require intensive care unit admission postoperatively since she will be a surgical patient. The procedure was discussed with the patient and the risks of, but not limited to bleeding, infection , intraabdominal abscess formation, injury to peritoneal and retroperitoneal structures, possibility of an open procedure, possibility of bowel resection, and/or revision of her gastrojejunostomy or jej unojejunostomy were all were discussed. Postoperative recovery time was discussed. We also discusse d the risk of anesthesia and blood clots. I also discussed the above with her on the telephone. For now, she will be kept n.p.o. and she has received IV Zosyn. She is undergoing fluid resuscitatio n and we will proceed emergently. [id number]/[facility] #: [id number]
[2019-08-03] MEDS ORDERED: Acetaminophen IV 1GM/100ML * 100 ML ONE (13:45)
[2019-08-03] MEDS ORDERED: ZOSYN 3.375 GM x ONE DOSE over 30 miuntes IVPB ×2 (15:00)
[2019-08-03] MEDS ORDERED: NS 0.9% 1000 ML** 1,000 ML IV SCH (15:30)
--- NOTE | 2019-08-03 15:52 | OP ---
Operative Report - Blank - Operative Report Date of Operation: 08/03/19 Note: OPERATIVE REPORT Pre-op: Pneumoperitoneum, peritonitis, sepsis Post-Op: Same, Perforated marginal ulcer at gastrojejunostomy Procedure:Diagnostic laparoscopy, laparoscopic Dave patch repair of perforated marginal ulcer, remnant gastrostomy tube Surgeon: MD Irvin Asst: MD Billie Anes: general with local, Dr. Manzano IVF:1.1 liter crystalloid EBL:min Specimen: none Drain: #10 FRANCK drain Findings: Perforated marginal ulcer Wound: 4 To ICU
--- NOTE | 2019-08-03 17:06 | OP ---
CC: Dr. Kaylie Rodriguez; [facility]; [facility] OPERATIVE REPORT: DATE OF PROCEDURE: 08/03/19 DATE OF : 69 SURGEON: Dr. Bryan. BOX FABRICATOR: Dr. Wise. ANESTHESIOLOGIST: Dr. Manzano. ANESTHESIA: General. PRE-OP DIAGNOSIS: Acute abdomen with perforated viscus. POST-OP DIAGNOSIS: Perforated marginal ulcer. OPERATIVE PROCEDURE: Diagnostic laparoscopy, Dave patch of perforated marginal ulcer and remnant gastrostomy. ESTIMATED BLOOD LOSS: Less than 50 cc. IV FLUIDS: Crystalloid fluids given, see anesthesia records for details. SPECIMEN: None. DRAINS: #10 FRANCK drain left over the Dave patch and a remnant gastrotomy, 16- [place] Myers catheter for gastrostomy to gravity drainage. DESCRIPTION OF PROCEDURE: Ms. Hong is a 54-year-old female known to me after undergoing a laparoscopic Edgar-en-Y gastric bypass. In January 2019. She presented to the emergency room early today, and this record was reviewed. My partner, Dr. Wise admitted her and discussed the case with me. I agreed with his recommendation of operative intervention but again I did not get an opportunity to speak with Ms. Hong, although surrogate , Dr. Wise stated the risks, benefits and alternatives in the standard fashion. The patient was taken to the operating room, had already received preoperative antibiotics. General anesthesia was given. A Myers catheter was inserted. SCDs were in place and the patient's abdomen was prepped and draped in standard surgical fashion. A time-out was performed. Folds of the umbilicus were elevated anteriorly and Veress needle inserted into the abdominal cavity, which was then allowed to insufflate to a pressure of 15 mmHg. The patient tolerated the insufflation well, midway between the xiphoid and umbilicus, just left of midline, a 5-mm trocar was inserted. Laparoscope was inserted through this, there was no evidence of injury from trocar insertion and the Veress needle was then removed. Review of the abdomen showed exudate around the site of the upper abdomen. Additional 5-mm trocar was then placed in the right upper quadrant. I was able to look under the liver and see attachments to the Edgar limb with occasional exudative tissue along with murky ascites throughout the upper abdomen. This was suctioned off. Cultures were not taken. Another a 12-mm trocar was inserted at the left upper quadrant and we reviewed the abdomen. Pelvis showed again the similar fluid, but no apparent disease of the colon. Upper abdomen, liver appeared nodular consistent with nonalcoholic fatty liver disease. The first portion of the duodenum appeared normal as did the antrum of stomach remnant. We extended our look up under the liver and blunt dissection was carried out at this site freeing up loosely adhered tissue to the underside of the liver allowing us to see where the disease was and this was at the gastrojejunostomy. A Ryan retractor was then inserted through a subxiphoid incision and liver was retracted anteriorly into the right exposing the gastroesophageal junction as well as the gastrojejunal anastomosis. Omental attachments were taken off the anterior aspect of the gastrojejunum with both blunt and sharp dissection until we could see a hole on the jejunal side approximately 4 mm. Enteric contents were forthcoming at the site. We freed the attachments to both the anterior aspect of the gastrojejunum as well as the lateral aspect until we could better identify the site. Tissue was intact. I could not comment on the size of the gastrojejunum, only that there was an ulcer at the site without any additional disease. We turned our attention to the stomach remnant and the additional clearance with sharp dissection was carried out to be able to bring the body of the stomach up to the anterior abdominal wall where we decided we will place again a feeding remnant gastrostomy. Next, the omentum that was lifted off the structures was then reevaluated. A tongue of this would be able to reach to the ulcer with the ease. We then reviewed again the gastrojejunum. The opening at the anterior aspect did not show tension at this site and had no additional disease. We utilized 2-0 silk sutures 3 in all going through stomach pouch and then into jejunum and prior to tying these, we laid the omentum in a Dave patch fashion. These were tied and showed good coverage of the ulcer. Biopsies were not taken. We did irrigate the abdomen over the spleen and liver removing thick ascites and also fluid within the pelvis. We irrigated approximately 3 L and the effluent appeared more clear. The remnant gastrostomy was created. A 2-0 Vicryl suture was used on the anterior aspect of stomach in a pursestring fashion. Through separate incision , a 16-[place] Myers catheter was inserted and a gastrotomy made with cautery. We then ran a Myers catheter into the stomach. It moved freely. We tied the pursestring suture and then brought it up to the anterior abdominal wall. We had placed 2-0 silk sutures on the anterior abdominal wall and ran these through the anterior aspect of the stomach to help bring this up to the anterior abdominal wall and these were tied. A gastrostomy tubing was then sutured to the skin with a 0-silk. A #10 FRANCK drain was placed in the abdomen and then brought out through the right quadrant port site. It was placed over the perforated ulcerated patch and sutured to the skin with 3-0 Prolene sutures. The patient was placed back to neutral position. Ryan retractor was removed. Hemostasis was excellent. We then allowed the abdomen to collapse and trocars removed under direct vision. Skin blanco were used at the port sites followed by sterile dressing. The patient tolerated the procedure. [id number]/[facility] #: [id number] [facility]
--- NOTE | 2019-08-03 17:54 | PN ---
Progress Note - Progress Note Date of Service: 08/03/19 Note: Critical Care Brief Note: Patient transferred from OR for overnight observation. Patient has hx of recent gastric bypass and significant weight loss. Today, patient has abdominal pain, found to have perforated marginal ulcer at the GJ junction with peritonitis, pneumoperitoneum and sepsis with LA 3.2. Currently s/p laparoscopic repair with Dr. Wise. Hemodynamically stable, afebrile, NPO with LR running at 125ml/ hr. She is a COVID19 rule out but states she has had no known exposure. Plan for tonight: 1. Monitor for evolving sepsis, repeat lactic if febrile 2. Continue IVF, start levophed if MAPS <65 3. Continue Broad spectrum coverage with zosyn 4. Strict NPO 5. Monitor drain and martínez outputs 6. Pain control, zofran PRN 7. Maintain isolation until COVID results available Transfer to floor in AM if no decline in status.
[2019-08-03] MEDS: Pantoprazole IV* 40 MG IV SCH (19:38)
[2019-08-03] MEDS: HYDROmorphone INJ1* 1 MG/ML SYRINGE IV SLOW PU PRN ×2 (19:42→22:22)
[2019-08-03] MEDS: Piperacillin/Tazobactam VIAL*) 3.375 GM in NS 0.9% 100 ML* 100 ML IVPB SCH (22:01)
[2019-08-03 22:46] LABS: Urine Appearance Clear; Urine Bilirubin Negative (Negative); Urine Blood 1+ (Negative); Urine Color Yellow; Urine Glucose 1+(50 mg/dL) (Negative); Urine Ketones Negative (Negative); Urine Nitrite Negative (Negative); Urine Protein Negative (Negative); Urine Specific Gravity 1.031 (1.010-1.030); Urine Urobilinogen Negative (Negative)
[2019-08-03 22:47] LABS: Urine Bacteria Absent (Absent); Urine Red Blood Cell 2+(6-10/hpf) (Absent); Urine Squamous Epithelial Cell Present (Absent); Urine White Blood Cell 1+(6-10/hpf) (Absent)
[2019-08-04] MEDS: HYDROmorphone INJ1* 1 MG/ML SYRINGE IV SLOW PU PRN ×8 (02:33→22:55)
[2019-08-04] MEDS: Piperacillin/Tazobactam VIAL*) 3.375 GM in NS 0.9% 100 ML* 100 ML IVPB SCH ×4 (05:25→22:55)
[2019-08-04 05:50] LABS: ABS Lymphocytes 0.8 10^3/ul (1.0-4.8); ABS Monocytes 0.3 10^3/ul (0-0.8); ABS Neutrophils 5.6 10^3/ul (1.5-7.7); Hematocrit 34 % (35-47); Hemoglobin 11.6 g/dL (12.0-16.0); Lymphocyte % 12.1 %; Mean Corpuscular HGB Conc 34 g/dL (31-36); Mean Corpuscular Hemoglobin 31 pg (27-31); Mean Corpuscular Volume 91 fL (80-97); Platelet Count 48 10^3/uL (150-450); Red Blood Count 3.75 10^6 /uL (3.70-4.87); Red Cell Distribution Width 15 % (10-15); White Blood Count 6.8 10^3/uL (3.5-10.8)
[2019-08-04 06:30] LABS: Albumin 2.9 g/dL (3.2-5.2); Albumin/Globulin Ratio 1.2 (1-3); BUN/Creatinine Ratio 17.4 (8-20); Calcium 8.2 mg/dL (8.6-10.3); EGFR African American 108.1 (>60); EGFR Non-African American 89.3 (>60); Globulin 2.4 g/dL (2-4); Potassium 4.2 mmol/L (3.5-5.0); Total Bilirubin 1.2 mg/dL (0.2-1.0); Total Protein 5.3 g/dL (6.4-8.9)
[2019-08-04] MEDS ORDERED: Lactated Ringers 1000 ML Bag* 500 ML IV SCH (08:00)
[2019-08-04] MEDS ORDERED: Lactated Ringers 1000 ML Bag* 1,000 ML IV SCH (08:00)
--- NOTE | 2019-08-04 13:31 | PN ---
Date of Service: 08/04/19 Critical Care Services: SBPs on the lower end of normal throughout the night but seems to have normalized with MAP>65. Vital Signs: Temp Pulse Resp BP SpO2 FiO2 97.1 F 62 16 94/51 97 2 08/04/19 13:00 08/04/19 13:00 08/04/19 13:00 08/04/19 13:00 08/04/19 13:00 08/03 11:26 Physical Exam: Gen: Awake, alert, sitting up in the chair HEENT: Atraumatic, normocephalic, anicteric sclera, neck supple Lungs: Clear throughout, diminished in the bases, exam limited d/t pain Cardiac: normal rate, s1s2 Abdomen: soft, tender to touch, surgical dressing and [address] BS absent. Extremities: Warm, dry, no edema Neuro: Awake, alert, oriented x3, follows commands. PERRL 4mm, EOMI. Strength 5/ 5 all extremities, sensation intact to all extremities. No gross focal deficits. Fluid Balance (Past 24 Hours): I= O= Net Intake & Output 08/02/19 08/03/19 08/04/19 08/05/19 06:59 06:59 06:59 06:59 Intake Total 4781 1330 Output Total 1985 460 Balance 2796 870 Weight 179 lb 176 lb 12.972 oz Intake: IV Fluids 4559 1192 IVF 918 LR 1930 274 NS 429 NS 100ML, Zosyn 3.375G 100 IVPB 222 138 ABX - PIPERACILLIN 222 138 Output: FRANCK #1 475 210 Martínez 1510 250 Labs: Laboratory Results - last 24 hr 08/03/19 08/04/19 08/04/19 22:30 05:32 05:32 WBC 6.8 RBC 3.75 Hgb 11.6 L Hct 34 L MCV 91 MCH 31 MCHC 34 RDW 15 Plt Count 48 L D MPV 12.0 H Neut % (Auto) 82.9 Lymph % (Auto) 12.1 [place] % (Auto) 4.9 Eos % (Auto) 0.0 Baso % (Auto) 0.1 Absolute Neuts (auto) 5.6 Absolute Lymphs (auto) 0.8 L Absolute Monos (auto) 0.3 Absolute Eos (auto) 0.0 Absolute Basos (auto) 0.0 Absolute Nucleated RBC 0.0 Nucleated RBC % 0.0 Sodium 139 Potassium 4.2 Chloride 108 Carbon Dioxide 27 Anion Gap 4 BUN 12 Creatinine 0.69 Est GFR ( Amer) 108.1 Est GFR (Non-Af Amer) 89.3 BUN/Creatinine Ratio 17.4 Glucose 124 H Calcium 8.2 L Total Bilirubin 1.20 H AST 56 H ALT 65 H Alkaline Phosphatase 208 H Total Protein 5.3 L Albumin 2.9 L Globulin 2.4 Albumin/Globulin Ratio 1.2 Urine Color Yellow Urine Appearance Clear Urine pH 5.0 Ur Specific [place] 1.031 H Urine Protein Negative Urine Ketones Negative Urine Blood 1+ A Urine Nitrate Negative Urine Bilirubin Negative Urine Urobilinogen Negative Ur Leukocyte Esterase Negative Urine WBC (Auto) 1+(6-10/hpf) A Urine RBC (Auto) 2+(6-10/hpf) A Ur Squamous Epith Cells Present A Urine Bacteria Absent Urine Glucose 1+(50 mg/dl) A Nutrition: NPO until cleared by surgery Impression: 54F with known medical history of obesity, HTN, DM, YAJAIRA, chronic back pain, hypothyroidism, and laproscopic gastric bypass in 01/2019. She presents on with sudden onset abdominal pain, radiating to the chest. She underwent CT of the chest/abd/pelvis and was found to have large amount of free air in upper abdominal cavity. She underwent diagnostic lap and was found to have pneumoperitoneum, peritonitis, perforated marginal ulcer at gastrojejunostomy. S /p lap teo patch repair of perforated marginal ulcer, remnant gastrostomy tube. SHe was admitted to ICU for observation. 1. Perforated marginal ulcer at gastrojejunostomy 2. Pneumoperitoneum, peritonitis 3. Sepsis 4. YAJAIRA Plan: NEURO: - No active issues. AAO x3. - Delirium precautions CVS: - MAP low normal, but is resolving. Continue LR @ 150 for hydration and patient remains NPO - HR WNL RESPIRATORY: - No active issues - YAJAIRA- uses CPAP at bedtime GI: - S/p lap repair of perforated marginal ulcer at gastrojejunostomy - Doing well, has 2 drains - Remain NPO until cleared by Surgery - Continue PPI for GI prophylaxis RENAL: - Monitor I/O. Discontinue martínez - Replace electrolytes for K<4 and Mag<2 ENDOCRINE: - Monitor BG on chemistry. HEME: - Subq heparin for DVT prophylaxis ID: - Afebrile, WBC WNL. Continue zosyn for peritonitis. Consider adding anti- fungal agent if patient became febrile or WBC increases Disposition: patient is stable for floor transfer Code status: full
[2019-08-04] MEDS: Heparin VIAL(*) 5000 UNITS/ML VIAL (FIVE THOUSAND) SUBCUT SCH ×2 (14:24→20:27)
--- NOTE | 2019-08-04 15:06 | PN ---
Progress Note - Progress Note Date of Service: 08/04/19 SOAP: Subjective: Patient seen and examined with Covid-19 precautions. Patient sitting up on the computer with no complaints. Overnight events reviewed. No flatus. No nausea or vomiting. Positive abdominal pain that is improved. Patient is up earlier today and complained of no dizziness. Objective: Temp Pulse Resp BP Pulse Ox 97.1 F 62 16 94/51 97 08/04/19 13:00 08/04/19 13:00 08/04/19 14:23 08/04/19 13:00 08/04/19 13:00 Urine output good. Alert and oriented 3, in no apparent distress Abdomen: Soft, nondistended, tender at the incisions. Dressings intact. Saturated dressing at right upper quadrant FRANCK site with serous output in the drain. Gastrostomy to gravity drainage with scant bilious drainage. Extremities within normal limits Labs reviewed Assessment: Postoperative day one, diagnostic laparoscopy repair of marginal ulcer and remnant gastrostomy. Hemodynamically stable for the most part with low systolic blood pressures. I discussed with the patient her diagnosis and that I treated this in the above fashion. This is a risk of gastric bypass procedure in and I believe patient understands. Her questions were answered. She will need EGD in the future. We will need to rule out gastrojejunal stricture. Plan: Continue nothing by mouth IV fluids Antibiotics Upper GI via gastrostomy tomorrow, if normal, we can start tube feeds Labs in a.m.
[2019-08-04] MEDS: D5W 1/2 NS 1000 ML BAG* 1,000 ML IV SCH (16:16)
[2019-08-04] MEDS: Pantoprazole IV* 40 MG IV SCH (17:53)
[2019-08-05] MEDS: HYDROmorphone INJ1* 1 MG/ML SYRINGE IV SLOW PU PRN ×6 (03:14→23:40)
[2019-08-05] MEDS: Heparin VIAL(*) 5000 UNITS/ML VIAL (FIVE THOUSAND) SUBCUT SCH ×3 (05:50→21:00)
[2019-08-05] MEDS: Piperacillin/Tazobactam VIAL*) 3.375 GM in NS 0.9% 100 ML* 100 ML IVPB SCH ×4 (05:50→23:40)
[2019-08-05 05:55] LABS: Hematocrit 33 % (35-47); Mean Corpuscular HGB Conc 34 g/dL (31-36); Mean Corpuscular Hemoglobin 31 pg (27-31); Mean Corpuscular Volume 92 fL (80-97); Mean Platelet Volume 12.3 fL (7.4-10.4); Platelet Count 40 10^3/uL (150-450); Red Blood Count 3.54 10^6 /uL (3.70-4.87); Red Cell Distribution Width 15 % (10-15); White Blood Count 5.5 10^3/uL (3.5-10.8)
[2019-08-05 06:07] LABS: BUN/Creatinine Ratio 12.5 (8-20); Calcium 8.4 mg/dL (8.6-10.3); EGFR African American 91.1 (>60); EGFR Non-African American 75.3 (>60); Magnesium 1.5 mg/dL (1.9-2.7); Phosphorus 2.1 mg/dL (2.5-5.0); Potassium 3.6 mmol/L (3.5-5.0)
[2019-08-05 06:33] LABS: Folate 17.65 ng/mL (>3.99)
[2019-08-05] MEDS: D5W 1/2 NS 1000 ML BAG* 1,000 ML IV SCH (08:01)
[2019-08-05] MEDS ORDERED: Magnesium Sulfate 1 GM IV* 1 GM/100 ML BAG IV ONE (11:26)
[2019-08-05] MEDS ORDERED: Potassium Phosphate IV* 15 MMOLE in NS 0.9% 250 ML* 250 ML IVPB ONE (11:26)
--- NOTE | 2019-08-05 11:26 | PN ---
Progress Note - Progress Note Date of Service: 08/05/19 SOAP: Subjective: Patient seen and examined with Covid-19 precautions. Patient sitting up on the computer with no complaints. Overnight events reviewed. Some flatus. thirsty. some abdo pain. Objective: Temp Pulse Resp BP Pulse Ox 97.2 F 76 18 97/56 92 08/05/19 07:26 08/05/19 07:26 08/05/19 08:02 08/05/19 07:26 08/05/19 07:26 Intake & Output 08/04/19 08/05/19 08/05/19 22:59 06:59 14:59 Intake Total 444 1665 859 Output Total 375 839 Balance 69 826 859 Urine output good. Alert and oriented 3, in no apparent distress Abdomen: Soft, nondistended, tender at the incisions. Dressings removed. Gastrostomy to gravity drainage with scant bilious drainage. Extremities within normal limits Labs reviewed Assessment: Postoperative day two, diagnostic laparoscopy repair of marginal ulcer and remnant gastrostomy. Hemodynamically stable for the most part with low systolic blood pressures. Plan: Continue nothing by mouth IV fluids Antibiotics Upper GI via gastrostomy and PO, if normal, we can start tube feeds replete lytes
[2019-08-05] MEDS: Ondansetron INJ* 2 MG/ML VIAL IV PRN (13:34)
[2019-08-05] MEDS: Pantoprazole IV* 40 MG IV SCH (17:48)
[2019-08-06] MEDS: HYDROmorphone INJ1* 1 MG/ML SYRINGE IV SLOW PU PRN ×4 (02:50→21:00)
[2019-08-06] MEDS: D5W 1/2 NS 1000 ML BAG* 1,000 ML IV SCH ×2 (03:48→13:13)
[2019-08-06] MEDS: Heparin VIAL(*) 5000 UNITS/ML VIAL (FIVE THOUSAND) SUBCUT SCH (05:27)
[2019-08-06 05:31] LABS: Hematocrit 32 % (35-47); Hemoglobin 10.8 g/dL (12.0-16.0); Mean Corpuscular HGB Conc 34 g/dL (31-36); Mean Corpuscular Hemoglobin 31 pg (27-31); Mean Corpuscular Volume 92 fL (80-97); Red Blood Count 3.45 10^6 /uL (3.70-4.87); Red Cell Distribution Width 15 % (10-15); White Blood Count 4.2 10^3/uL (3.5-10.8)
[2019-08-06] MEDS: Piperacillin/Tazobactam VIAL*) 3.375 GM in NS 0.9% 100 ML* 100 ML IVPB SCH ×3 (06:09→17:58)
[2019-08-06 06:35] LABS: ABS Eosinophils 0.2 10^3/ul (0-0.6); ABS Lymphocytes 0.9 10^3/ul (1.0-4.8); ABS Monocytes 0.2 10^3/ul (0-0.8); ABS Neutrophils 2.9 10^3/ul (1.5-7.7); Eosinophil % 4.9 %; Lymphocyte % 21.5 %; Mean Platelet Volume 11.9 fL (7.4-10.4); Nucleated Red Blood Cells % 0.1; Platelet Count 40 10^3/uL (150-450)
[2019-08-06] MEDS: Ondansetron INJ* 2 MG/ML VIAL IV PRN (09:35)
--- NOTE | 2019-08-06 14:28 | PN ---
Progress Note - Progress Note Date of Service: 08/06/19 Note: S: POD #3. No longer on isolation (Covid testing was negative). Only c/o some mild abdominal pain, in addition to her baseline chronic back pain. Seems to be tolerating G-tube feeds well. Passing flatus and has had 4 loose BM's. O: Vital Signs - 8 hr 08/06/19 08/06/19 08/06/19 07:39 07:43 07:57 Temperature 96.9 F Pulse Rate 64 Respiratory 18 18 18 Rate Blood Pressure 107/60 (mmHg) O2 Sat by Pulse 94 Oximetry 08/06/19 08/06/19 08/06/19 11:38 12:24 14:01 Temperature 97.9 F Pulse Rate 63 Respiratory 18 18 18 Rate Blood Pressure 103/56 (mmHg) O2 Sat by Pulse 97 Oximetry Intake and Output Last 24 Hours 08/04/19 08/05/19 08/06/19 08/07/19 06:59 06:59 06:59 06:59 Intake Total 4781 3439 2951 100 Output Total 1985 1789 1450 500 Balance 2796 1650 1501 -400 Weight 176 lb 12.972 oz Intake: IV Fluids 4559 3086 2171 IVF 2368 2171 LR 1930 718 NS 429 NS 100ML, Zosyn 3.375G 100 IVPB 222 353 340 100 ABX - PIPERACILLIN 222 353 210 100 NS 30 magnesium 100 Oral 440 Output: FRANCK #1 475 429 500 200 Abdominal Drain 85 Urine 950 950 300 [place] 1510 325 Other: # Bowel Movements 2 1 Estimated Stool Amount Small Large Gen: sitting up in bed; NAD Heart: reg Lungs: clear ant Abd: lap site ok; FRANCK drain: clear, serous drainage; soft; mild tenderness to palp Extr: no edema Labs: Laboratory Tests 08/06/19 05:07 WBC 4.2 Hgb 10.8 L Plt Count 40 L A: s/p laparoscopic Dave patch of perf'd marginal ulcer, improving She tells me that she has been worked up for thrombocytopenia in the past and that w/u was unrevealing. She had been in the 70k range earlier this year and at least since 2018. P: cont Zosyn; G-tube feeds w/ advance per nutrition (would suspect she could go home with bolus feeds); tx to [facility]; encourage ambulation. Discussed w/ Dr. Wise. Will recheck her labs in a.m.
[2019-08-06] MEDS: Pantoprazole IV* 40 MG IV SCH (17:58)
[2019-08-07] MEDS: Piperacillin/Tazobactam VIAL*) 3.375 GM in NS 0.9% 100 ML* 100 ML IVPB SCH ×4 (00:06→17:59)
[2019-08-07] MEDS: D5W 1/2 NS 1000 ML BAG* 1,000 ML IV SCH (03:06)
[2019-08-07] MEDS: HYDROmorphone INJ1* 1 MG/ML SYRINGE IV SLOW PU PRN ×5 (03:07→22:51)
[2019-08-07 06:13] LABS: ABS Eosinophils 0.2 10^3/ul (0-0.6); ABS Lymphocytes 0.8 10^3/ul (1.0-4.8); ABS Monocytes 0.3 10^3/ul (0-0.8); ABS Neutrophils 2.1 10^3/ul (1.5-7.7); Eosinophil % 4.8 %; Hematocrit 34 % (35-47); Hemoglobin 11.6 g/dL (12.0-16.0); Lymphocyte % 23.7 %; Mean Corpuscular HGB Conc 34 g/dL (31-36); Mean Corpuscular Hemoglobin 31 pg (27-31); Mean Corpuscular Volume 92 fL (80-97); Mean Platelet Volume 11.9 fL (7.4-10.4); Nucleated Red Blood Cells % 0.1; Platelet Count 44 10^3/uL (150-450); Red Blood Count 3.69 10^6 /uL (3.70-4.87); Red Cell Distribution Width 15 % (10-15); White Blood Count 3.4 10^3/uL (3.5-10.8)
[2019-08-07 06:24] LABS: BUN/Creatinine Ratio 7.2 (8-20); Calcium 7.9 mg/dL (8.6-10.3); EGFR African American 108.1 (>60); EGFR Non-African American 89.3 (>60); Magnesium 1.7 mg/dL (1.9-2.7); Potassium 3.4 mmol/L (3.5-5.0)
--- NOTE | 2019-08-07 09:00 | PN ---
Progress Note - Progress Note Date of Service: 08/07/19 Note: Surgical progress note S: Reports she is feeling well. No nausea, emesis, fever, chills. Some upper ABD pain still, but improving. Tolerating tube feedings. Ambulating without issue. O: Temp Pulse Resp BP Pulse Ox 97.7 F 59 16 112/60 96 08/07/19 07:25 08/07/19 07:25 08/07/19 08:44 08/07/19 07:25 08/07/19 07:25 Laboratory Last Values WBC 3.4 10^3/uL (3.5-10.8) L 08/07/19 05:56 RBC 3.69 10^6 /uL (3.70-4.87) L 08/07/19 05:56 Hgb 11.6 g/dL (12.0-16.0) L 08/07/19 05:56 Hct 34 % (35-47) L 08/07/19 05:56 MCV 92 fL (80-97) 08/07/19 05:56 MCH 31 pg (27-31) 08/07/19 05:56 MCHC 34 g/dL (31-36) 08/07/19 05:56 RDW 15 % (10-15) 08/07/19 05:56 Plt Count 44 10^3/uL (150-450) L 08/07/19 05:56 MPV 11.9 fL (7.4-10.4) H 08/07/19 05:56 Neut % (Auto) 63.5 % 08/07/19 05:56 Lymph % (Auto) 23.7 % 08/07/19 05:56 [place] % (Auto) 7.9 % 08/07/19 05:56 Eos % (Auto) 4.8 % 08/07/19 05:56 Baso % (Auto) 0.1 % 08/07/19 05:56 Absolute Neuts (auto) 2.1 10^3/ul (1.5-7.7) 08/07/19 05:56 Absolute Lymphs (auto) 0.8 10^3/ul (1.0-4.8) L 08/07/19 05:56 Absolute Monos (auto) 0.3 10^3/ul (0-0.8) 08/07/19 05:56 Absolute Eos (auto) 0.2 10^3/ul (0-0.6) 08/07/19 05:56 Absolute Basos (auto) 0.0 10^3/ul (0-0.2) 08/07/19 05:56 Absolute Nucleated RBC 0.0 10^3/ul 08/07/19 05:56 Nucleated RBC % 0.1 08/07/19 05:56 Sodium 140 mmol/L (135-145) 08/07/19 05:56 Potassium 3.4 mmol/L (3.5-5.0) L 08/07/19 05:56 Chloride 108 mmol/L (101-111) 08/07/19 05:56 Carbon Dioxide 28 mmol/L (22-32) 08/07/19 05:56 Anion Gap 4 mmol/L (2-11) 08/07/19 05:56 BUN 5 mg/dL (6-24) L 08/07/19 05:56 Creatinine 0.69 mg/dL (0.51-0.95) 08/07/19 05:56 Est GFR ( Amer) 108.1 (>60) 08/07/19 05:56 Est GFR (Non-Af Amer) 89.3 (>60) 08/07/19 05:56 BUN/Creatinine Ratio 7.2 (8-20) L 08/07/19 05:56 Glucose 205 mg/dL (70-100) H 08/07/19 05:56 POC Glucose (mg/dL) 203 mg/dL (70-100) H 08/06/19 12:17 Lactic Acid 0.6 mmol/L (0.5-2.0) 08/05/19 05:13 Calcium 7.9 mg/dL (8.6-10.3) L 08/07/19 05:56 Phosphorus 3.0 mg/dL (2.5-5.0) 08/07/19 05:56 Magnesium 1.7 mg/dL (1.9-2.7) L 08/07/19 05:56 Total Bilirubin 1.20 mg/dL (0.2-1.0) H 08/04/19 05:32 AST 56 U/L (13-39) H 08/04/19 05:32 ALT 65 U/L (7-52) H 08/04/19 05:32 Alkaline Phosphatase 208 U/L (34-104) H 08/04/19 05:32 Troponin I 0.01 ng/mL (<0.03) 08/03/19 07:04 C-Reactive Protein 5.15 mg/L (<8.01) 08/03/19 07:04 Total Protein 5.3 g/dL (6.4-8.9) L 08/04/19 05:32 Albumin 2.9 g/dL (3.2-5.2) L 08/04/19 05:32 Globulin 2.4 g/dL (2-4) 08/04/19 05:32 Albumin/Globulin Ratio 1.2 (1-3) 08/04/19 05:32 Lipase 13 U/L (11.0-82.0) 08/03/19 07:04 Vitamin B12 799 pg/mL (180-914) 08/05/19 05:13 Folate 17.65 ng/mL (>3.99) 08/05/19 05:13 Urine Color Yellow 08/03/19 22:30 Urine Appearance Clear 08/03/19 22:30 Urine pH 5.0 (5-9) 08/03/19 22:30 Ur Specific [place] 1.031 (1.010-1.030) H 08/03/19 22:30 Urine Protein Negative (Negative) 08/03/19 22:30 Urine Ketones Negative (Negative) 08/03/19 22:30 Urine Blood 1+ (Negative) A 08/03/19 22:30 Urine Nitrate Negative (Negative) 08/03/19 22:30 Urine Bilirubin Negative (Negative) 08/03/19 22:30 Urine Urobilinogen Negative (Negative) 08/03/19 22:30 Ur Leukocyte Esterase Negative (Negative) 08/03/19 22:30 Urine WBC (Auto) 1+(6-10/hpf) (Absent) A 08/03/19 22:30 Urine RBC (Auto) 2+(6-10/hpf) (Absent) A 08/03/19 22:30 Ur Squamous Epith Cells Present (Absent) A 08/03/19 22:30 Urine Bacteria Absent (Absent) 08/03/19 22:30 Urine Glucose 1+(50 mg/dl) (Negative) A 08/03/19 22:30 COVID-19 PCR Undetected (Undetected) 08/03/19 07:04 Intake and Output Last 24 Hours 08/05/19 08/06/19 08/07/19 08/08/19 06:59 06:59 06:59 06:59 Intake Total 3439 2951 1180 Output Total 1789 1450 725 Balance 1650 1501 455 Intake: IV Fluids 3086 2171 1080 ABX - PIPERACILLIN 100 IVF 2368 2171 LR 718 NS 980 IVPB 353 340 100 ABX - PIPERACILLIN 353 210 100 NS 30 magnesium 100 Oral 440 0 Output: FRANCK #1 429 500 425 Abdominal Drain 85 Urine 950 950 300 [place] 325 Other: Estimated Void Medium # Bowel Movements 2 1 Estimated Stool Amount Small Large # Voids 4 PEX: General: Alert, in NAD. HEENT: Oropharynx clear. PERRLA. Heart: RRR. Lungs: CTAB. ABD: BS present. Soft, nondistended. Tender in epigastrium. FRANCK drain with SS fluid. Incisions C/D/I. Extremities: Distal pulses intact BL. No edema. Calves soft and nontender. Assessment and plan: 54 yo F s/p laparoscopic teo patch for perforated marginal ulcer, POD 4. She is improving. Continue zosyn, G-tube feeds, ambulation. KCl runs ordered for hypokalemia. Feeding rate increased to 50 cc / hr. Bariatric clear liquid diet additionally. She will need oral antibiotics at home after discharge. Discussed with Dr. Bryan.
[2019-08-07] MEDS: KCL 10 MEQ/50 ML IVPREMIX* 10 MEQ/50 ML BAG IV SCH ×2 (12:55→15:46)
[2019-08-07] MEDS: Pantoprazole IV* 40 MG IV SCH (17:59)
[2019-08-08] MEDS: Piperacillin/Tazobactam VIAL*) 3.375 GM in NS 0.9% 100 ML* 100 ML IVPB SCH ×4 (00:04→18:18)
[2019-08-08] MEDS: HYDROmorphone INJ1* 1 MG/ML SYRINGE IV SLOW PU PRN ×3 (00:21→07:39)
[2019-08-08] MEDS: Ondansetron INJ* 2 MG/ML VIAL IV PRN (05:39)
--- NOTE | 2019-08-08 09:41 | PN ---
Progress Note - Progress Note Date of Service: 08/08/19 Note: S: POD #5. Doing well overall. Had some slight nausea this a.m. which she relates to her CPAP. Would like to drink. Passing flatus. Ambulating. Seen and examined w/ Dr. Bryan. O: Vital Signs - 8 hr 08/08/19 08/08/19 08/08/19 01:40 03:40 03:51 Temperature 97.8 F Pulse Rate 61 Respiratory 16 16 16 Rate Blood Pressure 110/63 (mmHg) O2 Sat by Pulse 94 Oximetry 08/08/19 08/08/19 08/08/19 05:24 07:39 07:47 Temperature Pulse Rate Respiratory 16 22 22 Rate Blood Pressure (mmHg) O2 Sat by Pulse Oximetry 08/08/19 08/08/19 07:54 09:04 Temperature 97.9 F Pulse Rate 72 Respiratory 18 18 Rate Blood Pressure 95/40 (mmHg) O2 Sat by Pulse 96 Oximetry Intake and Output Last 24 Hours 08/06/19 08/07/19 08/08/19 08/09/19 06:59 06:59 06:59 06:59 Intake Total 2951 1180 3134 992 Output Total 8923 355 4698 80 Balance 1501 455 734 912 Intake: IV Fluids 2171 1080 900 ABX - PIPERACILLIN 100 IVF 2171 900 NS 980 IVPB 340 100 212 ABX - PIPERACILLIN 210 100 212 NS 30 magnesium 100 Oral 440 0 0 Tube Feeding 1961 952 Tube Feeding Flush Amount 60 40 Output: FRANCK #1 500 425 400 30 Urine 680 696 9324 50 Other: Estimated Void Medium # Bowel Movements 2 1 0 Estimated Stool Amount Small Large # Voids 4 Gen: appears comfortable Heart: reg Lungs: clear Abd: lap sites ok; FRANCK clear serous; mildly tender upper abd and at G-tube site. Lower abd soft, nontender. NO labs today. A: s/p lap teo patch repair of perf'd marginal ulcer, doing well P: reviewed w/ Dr. Bryan: will start po nathan clears and she will advance as per usual bariatric eating guidelines; change to bolus feeds (Glucerna); no additional abx upon discharge (anticipated 08/08); she'll go home w/ FRANCK drain. Office f/u next wk at [facility]. Continue po omeprazole.
[2019-08-08] MEDS ORDERED: HYDROmorphone INJ1* 1 MG/ML SYRINGE IV SLOW PU PRN (10:00)
--- NOTE | 2019-08-08 10:58 | DS ---
Amended report to enter cosigning physician. CC: Dr. Kaylie Rodriguez* DISCHARGE SUMMARY: DATE OF ADMISSION: 08/03/19 ANTICIPATED DATE OF DISCHARGE: 08/09/19 ATTENDING SURGEON: Dr. Ganesh Bryan* (dictated by BELKIS Marrero). HOSPITAL COURSE: Please refer to admission history and physical and operative note for details. The patient was taken to the operating room on an emergent basis on 08/03/19 and underwent laparoscopic repair of perforated marginal ulcer at the gastrojejunal anastomosis. She was ruled out for COVID-19. Her surgical recovery has been otherwise unremarkable. She underwent upper GI study , which showed patency and no evidence of leak. A feeding gastrostomy in the gastric remnant was also placed at the time of surgery and she began tube feedings for 08/05/18, which she has tolerated well. These will be converted to bolus feedings. She was started on bariatric clear liquids on 08/08/19 and will progress according to the bariatric eating guidelines. She was maintained on IV PPI and Zosyn during her hospital stay. No further antibiotics were deemed necessary. She will continue omeprazole 40 mg once daily. She is also discharged with a FRANCK drain. She will have a followup with Dr. Bryan next week at [facility] on 08/14/19. See separate progress notes from 08/08/19. She is anticipated for discharge 08/09/19 to home in good condition. BELKIS MARRERO [id number]/[facility] #: [id number] [facility]
[2019-08-08] MEDS: HYDROcodone/ACET. 7.5/325 LIQ* 15 ML UDC PO PRN ×3 (11:14→20:53)
--- NOTE | 2019-08-08 12:01 | PN ---
Progress Note - Progress Note Date of Service: 08/08/19 SOAP: Subjective: Patient seen and evaluated. Overall feeling well. Has not started oral diet yet. Tolerating tube feeds through remnant gastrostomy. Positive gas and bowel movements. Patient's ventilatory. Objective: Temp Pulse Resp BP Pulse Ox 98.3 F 73 18 95/60 98 08/08/19 11:09 08/08/19 11:09 08/08/19 11:14 08/08/19 11:09 08/08/19 11:09 Alert and oriented 3, no apparent distress Abdomen: Soft, nondistended and tender only at the gastrostomy site. Sathya intact without erythema. FRANCK with serous output. Labs noted Assessment: POD 5 repair of marginal ulcer and gastrostomy. Hemodynamics stable. Thrombocytopenia. on PPI Plan: Oral diet Tube feeds Antibiotic 1 more day Discharge home on tube feeds, bolus, and FRANCK drain. Follow-up in bariatric office for FRANCK removal and staple removal. This was discussed with patient. She understands that MATY will be covering me this weekend.
[2019-08-08] MEDS: Pantoprazole IV* 40 MG IV SCH (18:18)
[2019-08-09] MEDS: Piperacillin/Tazobactam VIAL*) 3.375 GM in NS 0.9% 100 ML* 100 ML IVPB SCH ×2 (00:36→05:39)
[2019-08-09] MEDS: HYDROcodone/ACET. 7.5/325 LIQ* 15 ML UDC PO PRN ×3 (00:57→09:39)
[2019-08-09 06:53] LABS: ABS Eosinophils 0.2 10^3/ul (0-0.6); ABS Lymphocytes 1.1 10^3/ul (1.0-4.8); ABS Monocytes 0.3 10^3/ul (0-0.8); ABS Neutrophils 2.3 10^3/ul (1.5-7.7); Eosinophil % 4.5 %; Hematocrit 35 % (35-47); Hemoglobin 11.7 g/dL (12.0-16.0); Mean Corpuscular HGB Conc 34 g/dL (31-36); Mean Corpuscular Hemoglobin 31 pg (27-31); Mean Corpuscular Volume 92 fL (80-97); Platelet Count 56 10^3/uL (150-450); Red Blood Count 3.77 10^6 /uL (3.70-4.87); Red Cell Distribution Width 15 % (10-15); White Blood Count 3.8 10^3/uL (3.5-10.8)
[2019-08-09 09:11] VITALS: BP 103/60
--- NOTE | 2019-08-09 10:34 | PN ---
Progress Note - Progress Note Date of Service: 08/09/19 Note: Surgery Progress Note S: Patient is doing very well. She has no pain. Tolerating bariatric clears. She is ambulating. She is eager for discharge today. O: Vital Signs - 24 hr 08/08/19 08/08/19 08/08/19 11:09 11:14 13:01 Temperature 98.3 F Pulse Rate 73 Respiratory 16 18 18 Rate Blood Pressure 95/60 (mmHg) O2 Sat by Pulse 98 Oximetry 08/08/19 08/08/19 08/08/19 15:21 16:31 18:33 Temperature 97.4 F Pulse Rate 65 Respiratory 16 18 18 Rate Blood Pressure 103/61 (mmHg) O2 Sat by Pulse 100 Oximetry 08/08/19 08/08/19 08/08/19 19:52 20:00 20:53 Temperature 98.1 F Pulse Rate 61 Respiratory 16 18 18 Rate Blood Pressure 92/48 (mmHg) O2 Sat by Pulse 96 Oximetry 08/08/19 08/09/19 08/09/19 21:18 00:37 00:57 Temperature 98.2 F Pulse Rate 64 62 Respiratory 18 18 Rate Blood Pressure 123/65 121/73 (mmHg) O2 Sat by Pulse 100 Oximetry 08/09/19 08/09/19 08/09/19 01:01 03:30 04:21 Temperature 98.6 F Pulse Rate 63 Respiratory 18 18 18 Rate Blood Pressure 120/69 (mmHg) O2 Sat by Pulse 98 Oximetry 08/09/19 08/09/19 08/09/19 05:31 08:00 08:17 Temperature Pulse Rate Respiratory 18 18 18 Rate Blood Pressure (mmHg) O2 Sat by Pulse Oximetry 08/09/19 08/09/19 09:11 09:39 Temperature 97.9 F Pulse Rate 53 Respiratory 18 18 Rate Blood Pressure 103/60 (mmHg) O2 Sat by Pulse 98 Oximetry Laboratory Results - last 24 hr 08/09/19 06:43 WBC 3.8 RBC 3.77 Hgb 11.7 L Hct 35 MCV 92 MCH 31 MCHC 34 RDW 15 Plt Count 56 L MPV 11.0 H Neut % (Auto) 59.7 Lymph % (Auto) 28.0 [place] % (Auto) 7.7 Eos % (Auto) 4.5 Baso % (Auto) 0.1 Absolute Neuts (auto) 2.3 Absolute Lymphs (auto) 1.1 Absolute Monos (auto) 0.3 Absolute Eos (auto) 0.2 Absolute Basos (auto) 0.0 Absolute Nucleated RBC 0.0 Nucleated RBC % 0.0 Intake & Output 08/08/19 08/09/19 08/09/19 22:59 06:59 14:59 Intake Total 100 350 100 Output Total 1430 1440 750 Balance -1330 -1090 -650 Intake: Oral 150 Tube Feeding 60 120 60 Tube Feeding Flush Amount 40 80 40 Output: FRANCK #1 30 90 50 Urine 1400 1350 700 Physical exam: Abdomen- soft, NTND, G tube in place in RUQ, dressings dry. FRANCK with serous fluid A/P: 54 F POD 6 from laparoscopic teo patch, g tube placement for perforated marginal ulcer, doing very well. - Plan to DC today. Discharge plan reviewed with patient today and yesterday with Dr. Bryan. No abx for home. Rx already picked up by . She ill continue and advance from bariatric clears and bolus tube feeds from g tube. - Platelets declined after surgery, but went up today. - Follow up with Dr. Bryan this Thurs in the office.
== END 2019-08-09 12:00 | disposition home or self-care (01) | DRG 710 ==
LOC: ED 06:09 → OR 12:32 → ICU 15:28 → INTOOBSV 15:30 → OBSVTOIN 15:30 → MED 08-04 14:15 → SSU 08-06 10:40
PROVIDERS: ADMIT Surgery; ATTEND Surgery
PROC: 0DH64UZ Insertion of Feeding Device into Stomach, Percutaneous Endoscopic Approach (ICD-10-PCS; 2019-08-03)
PROC: 3E0G76Z Introduction of Nutritional Substance into Upper GI, Via Natural or Artificial Opening (ICD-10-PCS; 2019-08-03)
PROC: 0DU647Z Supplement Stomach with Autologous Tissue Substitute, Percutaneous Endoscopic Approach (ICD-10-PCS; principal; 2019-08-03 11:30)
DX: A41.9 Sepsis, unspecified organism (principal); K28.1 Acute gastrojejunal ulcer with perforation; K65.9 Peritonitis, unspecified; I10 Essential (primary) hypertension; E11.9 Type 2 diabetes mellitus without complications; G47.33 Obstructive sleep apnea (adult) (pediatric); M54.9 Dorsalgia, unspecified; G89.29 Other chronic pain; E03.9 Hypothyroidism, unspecified; R19.7 Diarrhea, unspecified; R07.9 Chest pain, unspecified; E87.6 Hypokalemia; E66.01 Morbid (severe) obesity due to excess calories; Z20.828 Contact with and (suspected) exposure to other viral communicable diseases; Z98.84 Bariatric surgery status; Z68.28 Body mass index [BMI] 28.0-28.9, adult; Z79.899 Other long term (current) drug therapy; Z88.5 Allergy status to narcotic agent; Z88.2 Allergy status to sulfonamides; Z88.8 Allergy status to other drugs, medicaments and biological substances; Z83.3 Family history of diabetes mellitus; Z83.49 Family history of other endocrine, nutritional and metabolic diseases
CPT/HCPCS: 36415; 43653; 49659; 71260; 74177; 74246; 80048; 80053; 81003; 81015; 82607; 82746; 83605; 83690; 83735; 84100; 84425; 84484; 85025; 85027; 86140; 87086; 87635; 93005; 96374; 96375; 96376; 99284; J1100; J1170; J1644; J2250; J2270; J2405; J2543; J2704; J3010; J3475; J3480; Q9967

== ENCOUNTER 2023-01-10 06:08 | Inpatient (IN) ==
[~2023-01-10 06:08] MED LIST: Buffered Lidocaine 1% SYRIN 1 ml INTRADERM ONE; Ertapenem 1 GM in NS 0.9% 50 ML BAG IVPB SCH; Lactated Ringers 1000 ml BAG 1,000 ML IV SCH; Scopolamine 1 mg/72hr PATCH TRANSDERM ONE
[2023-01-10] MEDS ORDERED: fentaNYL 250 mcg/5 ml 50 MCG/ML 5 ml VIAL (250 MCG) ONE (06:39)
[2023-01-10] MEDS ORDERED: Propofol 10 MG/ML 20 ML BTL ONE ×2 (06:39→11:01)
[2023-01-10] MEDS ORDERED: Lidocaine 2% PF 5 ML VIAL ONE ×2 (06:39→11:01)
[2023-01-10] MEDS ORDERED: Rocuronium 50 mg VIAL 10 mg/ml 5 ml VIAL (50 mg) ONE ×4 (06:39→10:54)
[2023-01-10] MEDS ORDERED: Scopolamine 1 mg/72hr PATCH ONE (06:46)
[2023-01-10] MEDS ORDERED: Midazolam 2 mg/2 ml VIAL 1 mg/ml 2 ml VIAL (2 mg) ONE ×2 (06:46→11:01)
[2023-01-10 07:17] LABS: Rapid COVID-19 Molecular Undetected (Undetected)
[2023-01-10] MEDS ORDERED: Lidocaine 4 MG/ML IV PREMIX 2,000 MG/500 ML BAG IV ONE (07:27)
[2023-01-10] MEDS ORDERED: Ondansetron 4 mg VIAL 2 MG/ML 2 ml VIAL ONE ×2 (07:50→12:25)
[2023-01-10] MEDS ORDERED: Dexamethasone IV 4 MG/ML VIAL 1 ml VIAL ONE (07:50)
[2023-01-10] MEDS ORDERED: Bupivacaine 0.25% SDV 30 ML ONE (08:02)
[2023-01-10] MEDS ORDERED: HYDROmorphone 0.5 MG/0.5 ML SYRINGE ONE ×2 (09:04→10:20)
[2023-01-10] MEDS ORDERED: fentaNYL 100 mcg/2 ml 50 MCG/ML VIAL ONE (11:01)
[2023-01-10] MEDS ORDERED: Naloxone 0.4 mg VIAL 0.4 mg/ml 1 ml VIAL IV PUSH PRN (11:25)
[2023-01-10] MEDS ORDERED: Dextrose 50% Syringe 50 ml 25 GM/50 ML SYRINGE IV PUSH PRN ×2 (11:26→12:27)
[2023-01-10] MEDS: Ondansetron 4 mg VIAL 2 MG/ML 2 ml VIAL IV PRN (12:29)
[2023-01-10] MEDS: HYDROmorphone PCA 20 MG/20 ML PCA.SYRING PCA SCH (12:51)
[2023-01-10] MEDS: Lactated Ringers 1000 ml BAG 1,000 ML IV SCH (14:31)
[2023-01-11] MEDS: Ondansetron 4 mg VIAL 2 MG/ML 2 ml VIAL IV PRN ×2 (00:33→06:51)
[2023-01-11 05:52] LABS: INR 1.61 (0.83-1.13)
[2023-01-11] MEDS: HYDROmorphone PCA 20 MG/20 ML PCA.SYRING PCA SCH (07:55)
[2023-01-11 10:18] LABS: ABS Lymphocytes 1.2 10^3/uL (1.0-4.8); ABS Monocytes 0.7 10^3/uL (0.0-0.9); ABS Neutrophils 10.7 10^3/uL (1.5-7.6); ABS Nucleated RBC 0.01 10^3/ul; Hematocrit 28.9 % (35-45); Hemoglobin 9.5 g/dL (11.5-14.3); Mean Corpuscular Hemoglobin 25.2 pg (27-33); Mean Corpuscular Hgb Conc 32.7 g/dL (31-36); Mean Platelet Volume 10.3 fL (7.5-11.2); Platelet Count 132 10^3/uL (150-450); Red Blood Count 3.75 10^6/uL (3.63-4.92); Red Cell Distribution Width 19.1 % (12-17); White Blood Count 12.7 10^3/uL (3.8-11.8)
[2023-01-11 10:19] LABS: Eosinophil % 0.3 %; Lymphocyte % 9.3 %
[2023-01-11 10:41] LABS: Calcium 8.7 mg/dL (8.6-10.3); Creatinine, Serum 0.76 mg/dL (0.51-0.95); Magnesium 1.7 mg/dL (1.9-2.7); Phosphorus 3.1 mg/dL (2.5-5.0); eGFR CKD-EPI 92.5 (>60)
[2023-01-11] MEDS ORDERED: Magnesium Sulfate 2 gm BAG 2 GM/50 ML BAG IVPB ONE (11:04)
[2023-01-11] MEDS: Lactated Ringers 1000 ml BAG 1,000 ML IV SCH ×2 (12:36→20:44)
[2023-01-11] MEDS: Heparin 5000 UNITS/ML 1 mL VIAL SUBCUT SCH ×2 (14:03→23:20)
[2023-01-12] MEDS: Ondansetron 4 mg VIAL 2 MG/ML 2 ml VIAL IV PRN ×2 (01:28→16:52)
[2023-01-12] MEDS: Lactated Ringers 1000 ml BAG 1,000 ML IV SCH (04:47)
[2023-01-12 06:20] LABS: Hematocrit 26.1 % (35-45); Hemoglobin 8.4 g/dL (11.5-14.3); Mean Corpuscular Hemoglobin 25.2 pg (27-33); Mean Corpuscular Hgb Conc 32.3 g/dL (31-36); Mean Corpuscular Volume 78.1 fL (80-97); Red Blood Count 3.34 10^6/uL (3.63-4.92); Red Cell Distribution Width 19.3 % (12-17); White Blood Count 4.8 10^3/uL (3.8-11.8)
[2023-01-12] MEDS: Heparin 5000 UNITS/ML 1 mL VIAL SUBCUT SCH ×3 (06:23→21:30)
[2023-01-12 06:27] LABS: Blood Urea Nitrogen 9 mg/dL (6-24); CO2 Carbon Dioxide 31 mmol/L (22-32); Chloride 101 mmol/L (101-111); Creatinine, Serum 0.65 mg/dL (0.51-0.95); Glucose 218 mg/dL (70-100); Potassium 3.5 mmol/L (3.5-5.0); Sodium 130 mmol/L (135-145)
[2023-01-12 06:28] LABS: Calcium 7.9 mg/dL (8.6-10.3); Magnesium 1.6 mg/dL (1.9-2.7); eGFR CKD-EPI 103.9 (>60)
[2023-01-12] MEDS: HYDROmorphone PCA 20 MG/20 ML PCA.SYRING PCA SCH (07:58)
[2023-01-12 08:29] LABS: ABS Eosinophils 0.2 10^3/uL (0.0-0.5); ABS Lymphocytes 0.8 10^3/uL (1.0-4.8); ABS Monocytes 0.4 10^3/uL (0.0-0.9); ABS Neutrophils 3.4 10^3/uL (1.5-7.6); ABS Nucleated RBC 0.01 10^3/ul; Eosinophil % 4.3 %; Lymphocyte % 16.7 %; Nucleated Red Blood Cells % 0.1 /100 WBC (0.0-0.4); Platelet Count 75 10^3/uL (150-450)
[2023-01-12] MEDS ORDERED: Potassium Phosphate IV 15 MMOL in NS 0.9% 250 ml 250 ML IVPB ONE (10:52)
[2023-01-12] MEDS ORDERED: Magnesium Sulfate IV 1GM/100ML 1 GM/100 ML BAG IV ONE (15:13)
[2023-01-12] MEDS: Morphine ORAL.SOLN 10 mg 2 mg/ml UDC 5 ml (10 mg) PO SCH (16:38)
[2023-01-13] MEDS: Morphine ORAL.SOLN 10 mg 2 mg/ml UDC 5 ml (10 mg) PO SCH ×3 (00:58→15:56)
[2023-01-13 06:07] LABS: Calcium 7.9 mg/dL (8.6-10.3); Creatinine, Serum 0.68 mg/dL (0.51-0.95); Magnesium 1.8 mg/dL (1.9-2.7); Phosphorus 2.5 mg/dL (2.5-5.0); Potassium 3.7 mmol/L (3.5-5.0); eGFR CKD-EPI 102.8 (>60)
[2023-01-13 06:26] LABS: Hematocrit 24.6 % (35-45); Hemoglobin 8.1 g/dL (11.5-14.3); Mean Corpuscular Hemoglobin 25.5 pg (27-33); Mean Corpuscular Hgb Conc 32.9 g/dL (31-36); Mean Corpuscular Volume 77.7 fL (80-97); Mean Platelet Volume 9.9 fL (7.5-11.2); Platelet Count 58 10^3/uL (150-450); Red Blood Count 3.17 10^6/uL (3.63-4.92); White Blood Count 2.6 10^3/uL (3.8-11.8)
[2023-01-13] MEDS: Heparin 5000 UNITS/ML 1 mL VIAL SUBCUT SCH ×3 (06:46→21:08)
[2023-01-14] MEDS: Morphine ORAL.SOLN 10 mg 2 mg/ml UDC 5 ml (10 mg) PO SCH ×3 (00:52→16:04)
[2023-01-14 05:54] LABS: Hematocrit 25.6 % (35-45); Hemoglobin 8.4 g/dL (11.5-14.3); Mean Corpuscular Hemoglobin 25.5 pg (27-33); Mean Corpuscular Hgb Conc 32.9 g/dL (31-36); Mean Corpuscular Volume 77.6 fL (80-97); Red Cell Distribution Width 19.5 % (12-17); White Blood Count 2.6 10^3/uL (3.8-11.8)
[2023-01-14 06:05] LABS: Calcium 8.2 mg/dL (8.6-10.3); Creatinine, Serum 0.64 mg/dL (0.51-0.95); Potassium 4.1 mmol/L (3.5-5.0); eGFR CKD-EPI 104.3 (>60)
[2023-01-14 06:13] LABS: ABS Eosinophils 0.2 10^3/uL (0.0-0.5); ABS Lymphocytes 0.8 10^3/uL (1.0-4.8); ABS Monocytes 0.3 10^3/uL (0.0-0.9); ABS Neutrophils 1.4 10^3/uL (1.5-7.6); Eosinophil % 8.2 %; Lymphocyte % 28.6 %; Mean Platelet Volume 10.2 fL (7.5-11.2); Platelet Count 63 10^3/uL (150-450)
[2023-01-14] MEDS: Heparin 5000 UNITS/ML 1 mL VIAL SUBCUT SCH ×3 (06:45→22:01)
[2023-01-15] MEDS: Morphine ORAL.SOLN 10 mg 2 mg/ml UDC 5 ml (10 mg) PO SCH ×4 (00:21→23:42)
[2023-01-15] MEDS: Heparin 5000 UNITS/ML 1 mL VIAL SUBCUT SCH ×3 (05:54→21:10)
[2023-01-15] MEDS ORDERED: Magnesium Hydroxide LIQ 30 ML UDC PO ONE (20:02)
[2023-01-16] MEDS: Heparin 5000 UNITS/ML 1 mL VIAL SUBCUT SCH (06:04)
[2023-01-16] MEDS: Morphine ORAL.SOLN 10 mg 2 mg/ml UDC 5 ml (10 mg) PO SCH (08:13)
[2023-01-16 10:05] VITALS: BP 109/61
== END 2023-01-16 10:50 | disposition home or self-care (01) | DRG 221 ==
LOC: AA 06:08 → SSU 14:04
PROVIDERS: ADMIT Surgery; ATTEND Surgery